=== PATIENT | female | born 1955 | race Caucasian/White ===

== ENCOUNTER 2018-04-13 01:45 | Emergency (ER) | payer OTHER ==
[2018-04-13] MEDS ORDERED: morphine SULFATE 4 MG/ML VIAL IVPUSH ONE (01:48)
[2018-04-13] MEDS ORDERED: ONDANSETRON 4 MG/2 ML VIAL IVPUSH ONE (01:48)
[2018-04-13] MEDS ORDERED: SODIUM CHLORIDE 1,000 ML IV STA (01:48)
--- NOTE | 2018-04-13 01:54 | PDOC ---
History of Present Illness - General Chief Complaint: Pain Stated Complaint: ABDOMINAL PAIN Time Seen by Provider: 04/13/18 01:48 History Source: Patient Exam Limitations: No Limitations - History of Present Illness Initial Comments: 04/13/18 02:26 Romeo Rand 63 YOF with no known medical history presenting with acute onset of diffuse mid-AP, n/v today. a/w dizziness and nearly passing out. Sx started 6pm tonight. Denies suspicious food intake or sick contacts. No diarrhea or urinary sx, no f/c, cp or sob. PMH: none PSH: none Social: no tobacco or ETOH/drug use. ROS Constitutional: no fevers or chills. HEENT: no headache or dizziness. No congestion. No visual/hearing disturbances. CVS: no cp or syncope. Resp: no sob. No cough. Gastrointestinal: +abdominal pain, nausea or vomiting. Genitourinary: no urinary sx, hematuria. MUSCULOSKELETAL: No joint pain and swelling. No neck or back pain. SKIN: no redness or skin changes, no discharge, no rash. No wounds. Hematologic: no easy bruising/bleeding. NEUROLOGIC: No headache, dizziness, LOC or altered mental status. No weakness, numbness or tingling. Allergic/Immunologic: no allergies All other systems reviewed and negative, or as documented in HPI. PE: General: in moderate distress, moaning and crying HEENT: NCAT, PERRL, EOMI, clear conjunctiva, anicteric, dry mucus membranes, clear oropharynx, no oral lesions.. Neck: neck supple, FROM Resp: CTAB, hyperventilating CVS: RRR, no murmurs, 2+ peripheral pulses throughout, no peripheral edema Abdomen: soft, mid-periumbilical TTP, no rebound or guarding. No CVAT Back: nontender, normal inspection and ROM MSK: no edema, CADE x4, ROM intact. No clubbing or cyanosis. normal bulk and tone. Extremities: no calf tenderness Neuro: alert Skin: warm and well perfused, cap refill <2 sec, normal color Past History - Past Medical History Allergies/Adverse Reactions: Allergies Allergy/AdvReac Type Severity Reaction Status Date / Time No Known Allergies Allergy Unverified 04/13/18 02:08 Home Medications: Ambulatory Orders Famotidine [Pepcid -] 20 mg PO BID #14 tablet 04/13/18 Mag Hydrox/Al Hydrox/Simeth [Mylanta Suspension -] 30 ml PO Q6H PRN #1 bottle Ondansetron [Zofran Odt -] 4 mg SL TID PRN #9 od.tablet 04/13/18 Heart Score/ECG Review - ECG Intrepretation Rhythm: Regular Rhythm - [place]: Normal - ST and T Early Repolarization: No - ECG Impressions Normal ECG: Yes Non-specific ST Elevation: No ED Treatment Course - LABORATORY CBC & Chemistry Diagram: 04/13/18 02:13 04/13/18 02:13 - RADIOLOGY Radiology Studies Ordered: Category Date Time Status ABDOMEN & PELVIS CT WITH CONTR [CT] Stat CT Scan 04/13/18 01:53 Ordered Medical Decision Making - Medical Decision Making 04/13/18 02:27 DDx abdominal pain: Renal colic, biliary colic, metabolic/electrolyte derangements. GERD, PUD, esophageal spasm, pancreatitis, hepatitis, constipation , colitis, gastroenteritis, cholecystitis, UTI, pyelonephritis, ileus, SBO, medication side effect, hernia, appendicitis, diverticulitis, mesenteric ischemia. ACS hpi as documented VS with hypertension, hyperventilating. normal pulse/afebrile labs and lytes wnl, mild likely reactive leukocytosis. normal lytes and Cr. CT a/p to r/o perf/obstruction/infection/inflammation with severity of presentation. no acute findings, no perf/obstruction, no obstructing stones. umbilical hernia UA_neg for infection EKG sinus rhythm, no e/o ischemia. trop neg, less likely ACS abdominal exam does not suggest peritonitis or mesenteric ischemia. ED course: multiple rounds of medications including IVF, zofran, tylenol, toradol and morphine. +rash likely from histamine mediation from morphine, so gave benadryl with improvement. no anaphylaxis. pepcid/GI cocktail trial and bentyl as well. more effect with the GI cocktail. on reeval, occasionally moaning, pointing to epigastrium. soft and no rebound or guarding now has been sleeping comfortably, will treat supportively and outpatient GI followup. more likely gastritis vs spasms vs dyspepsia. dispo: Pt informed of my clinical impression, treatment recommendations and disposition plan. All questions answered to patient's satisfaction and expressed understanding and comfort with this. Reasons for returning to the ED sooner discussed with the patient otherwise, follow up with primary care physician. At the time of discharge, the patient is alert, clinically improved, tolerating po and verbalizes understanding of instructions. Patient does not suffer from an acute life-threatening medical condition at this time she is safe for outpatient follow-up. 04/13/18 06:08 04/13/18 06:08 *DC/Admit/Observation/Transfer Diagnosis at time of Disposition: Abdominal pain Qualifiers: Abdominal location: generalized Qualified Code(s): R10.84 - Generalized abdominal pain - Discharge Dispostion Disposition: HOME Condition at time of disposition: Good Decision to Admit order: No - Prescriptions Prescriptions: Famotidine [Pepcid -] 20 mg PO BID #14 tablet Mag Hydrox/Al Hydrox/Simeth [Mylanta Suspension -] 30 ml PO Q6H PRN #1 bottle PRN Reason: Gas Ondansetron [Zofran Odt -] 4 mg SL TID PRN #9 od.tablet PRN Reason: Nausea And/Or Vomiting - Referrals Referrals: [facility] [place] [Provider Group] [facility] [Provider Group] Henrique Salazar MD [Staff Physician] - Rhys Barnes MD [Staff Physician] - Florencio Downing MD [Staff Physician] - - Patient Instructions Printed Discharge Instructions: DI for Abdominal Pain-Adult, GERD Diet Additional Instructions: Your laboratory / imaging results were normal, your CT scan did not reveal abnormalities, only umbilical hernia Follow up with your physician and consultants as instructed, take your medications as instructed including zofran every 8 hours as needed for nausea. pepcid twice a day and maalox four times a day with meals. this combination will help with your stomach pains. stay hydrated rest and avoid potential triggers such as spicy or fatty foods referrals to gastroenterologists provided for management and workup of your abdominal pain Return if worsening symptoms including fevers, headache, vomiting, visual or hearing disturbances, abdominal pain, chest pain, shortness of breath, syncope, dehydration, inability to take things by mouth/vomiting, altered mental status, or worsening concerning symptoms. your medications on discharge include_ side effects may include upset stomach, abdominal pain, vomiting, or diarrhea. do not drink alcohol with your medications. - Post Discharge Activity Forms/Work/School Notes: Back to Work
[2018-04-13 01:57] VITALS: BMI 27.4
[2018-04-13] MEDS ORDERED: morphine SULFATE 4 MG/ML VIAL ONE (02:10)
[2018-04-13] MEDS ORDERED: ONDANSETRON 4 MG/2 ML VIAL ONE (02:10)
[2018-04-13] MEDS ORDERED: FAMOTIDINE 20 MG/50 ML IVPB 20 MG/50 ML MG IVPB ONE ×2 (02:39→02:45)
[2018-04-13 02:46] LABS: BASO % 0.3 % (0-2.0); EOS % 0.2 % (0-4.5); HEMATOCRIT 37.8 % (32.4-45.2); HEMOGLOBIN 13.4 GM/dL (10.7-15.3); LYMPH % 16.2 % (8-40); MCHC 35.6 g/dl (32.0-36.0); MEAN CELL VOLUME 87.1 fl (80-96); MEAN PLT VOLUME 8.3 fl (7.5-11.1); MONO % 3.8 % (3.8-10.2); NEUT % 79.5 % (42.8-82.8); PLATELET COUNT 336 K/MM3 (134-434); RBC 4.34 M/mm3 (3.60-5.2); RDW 12.8 % (11.6-15.6); WHITE BLOOD COUNT 11.1 K/mm3 (4.0-10.0)
[2018-04-13] MEDS ORDERED: morphine CARPU-JECT 4 MG/1 ML DISP.SYRIN IVPUSH ONE (03:00)
[2018-04-13] MEDS ORDERED: ACETAMINOPHEN 1000 MG/100 ML VIAL (NON FORMULARY) IVPB ONE (03:04)
[2018-04-13] MEDS ORDERED: ACETAMINOPHEN INJECTION 100 ML IVPB ONE (03:08)
[2018-04-13 03:09] LABS: ALBUMIN 4.1 g/dl (3.4-5.0); ALK PHOS 84 U/L (45-117); ANION GAP 12 MMOL/L (8-16); BILIRUBIN,TOTAL 1.2 mg/dL (0.2-1); BLOOD UREA NITROGEN 17 mg/dL (7-18); CALCIUM 9.4 mg/dL (8.5-10.1); CHLORIDE 101 mmol/L (98-107); CO2 23 mmol/L (21-32); CREATININE 0.9 mg/dL (0.55-1.3); GLUCOSE,RANDOM 173 mg/dL (74-106); LIPASE 133 U/L (73-393); POTASSIUM 3.9 mmol/L (3.5-5.1); SGOT/AST 19 U/L (15-37); SGPT/ALT 35 U/L (13-61); SODIUM 136 mmol/L (136-145); TOT PROT 7.6 g/dl (6.4-8.2)
[2018-04-13] MEDS ORDERED: KETOROLAC TROMETHAMINE 15 MG/ML VIAL IVPUSH ONE (04:15)
[2018-04-13] MEDS ORDERED: KETOROLAC TROMETHAMINE 30 MG/1 ML VIAL ONE (04:16)
[2018-04-13] MEDS ORDERED: MAG HYDROX/AL HYDROX/SIMETH 30 ML UNIT-DOSE CUP PO ONE (04:20)
[2018-04-13] MEDS ORDERED: DICYCLOMINE HCL 20 MG TABLET PO ONE (04:21)
[2018-04-13] MEDS ORDERED: MAG HYDROX/AL HYDROX/SIMETH 30 ML UNIT-DOSE CUP ONE (04:23)
[2018-04-13] MEDS ORDERED: DICYCLOMINE HCL 10 MG CAPSULE ONE ×2 (04:23→04:24)
[2018-04-13 05:52] LABS: URINE APPEARANCE CLEAR; URINE BILIRUBIN NEGATIVE (<2.0 mg/dL); URINE COLOR LTYELLOW; URINE GLUCOSE (UA) NEGATIVE (NEGATIVE); URINE KETONE 2+ (NEGATIVE); URINE LEUK ESTERASE NEGATIVE (NEGATIVE); URINE NITRITE NEGATIVE (NEGATIVE); URINE PROTEIN NEGATIVE (NEGATIVE); URINE UROBILINOGEN NEGATIVE mg/dL (0.2-1.0)
[2018-04-13 06:12] VITALS: BP 160/92; PULSE 60; TEMP 98.6
--- NOTE | 2018-04-13 16:17 | EKG ---
Test Reason : Blood Pressure : / mmHG Vent. Rate : 059 BPM Atrial Rate : 059 BPM P-R Int : 184 ms QRS Dur : 084 ms QT Int : 490 ms P-R-T Axes : 023 044 033 degrees QTc Int : 485 ms SINUS BRADYCARDIA OTHERWISE NORMAL ECG NO PREVIOUS ECGS AVAILABLE Confirmed by SHIREEN SCHNEIDER MD ([id number]) on 04/13/2018 4:16:54 PM Referred By: DR CLARK Confirmed By:SHIREEN SCHNEIDER MD
== END 2018-04-13 06:20 | disposition home or self-care (01) ==
LOC: FER 01:45
PROC: 3E033NZ Introduction of Analgesics, Hypnotics, Sedatives into Peripheral Vein, Percutaneous Approach (ICD-10-PCS; principal; 2018-04-13)
PROC: 3E033GC Introduction of Other Therapeutic Substance into Peripheral Vein, Percutaneous Approach (ICD-10-PCS; 2018-04-13)
PROC: 3E0333Z Introduction of Anti-inflammatory into Peripheral Vein, Percutaneous Approach (ICD-10-PCS; 2018-04-13)
DX: R10.84 Generalized abdominal pain (principal)
CPT/HCPCS: 36415; 74177-TC; 80053; 81003; 83690; 84484; 85025; 87086; 93005; 99283-25; J0131; J7030

== ENCOUNTER 2018-07-10 07:34 | Emergency (ER) | payer OTHER ==
[2018-07-10 07:38] VITALS: TEMP 98; BMI 26.8
[2018-07-10] MEDS ORDERED: KETOROLAC TROMETHAMINE 30 MG/1 ML VIAL IVPUSH ONE (07:48)
[2018-07-10] MEDS ORDERED: KETOROLAC TROMETHAMINE 30 MG/1 ML VIAL ONE (07:50)
[2018-07-10] MEDS ORDERED: morphine CARPU-JECT 2 MG/1 ML DISP.SYRIN IVPUSH ONE (07:53)
[2018-07-10] MEDS ORDERED: SODIUM CHLORIDE 1,000 ML IV ONE (07:53)
[2018-07-10] MEDS ORDERED: morphine SULFATE 4 MG/ML VIAL ONE ×2 (07:54→08:11)
--- NOTE | 2018-07-10 07:59 | PDOC ---
History of Present Illness - General Chief Complaint: Pain, Acute Stated Complaint: LEFT FLANK PAIN Time Seen by Provider: 07/10/18 07:45 History Source: Patient Exam Limitations: No Limitations - History of Present Illness Travel History: No Initial Comments: 07/10/18 07:54 63y F no known pmhx presents with complaint of gradual onset left flank pain since around 2am this morning. Pain has been getting worse and seems to wax and wane in nature, also seems to radiate from the L flank to the L groin. Associated with nausea without vomting, fever/chills, dysuria, hematuria, diarrhea, melena, bpr. Pt denies any diaphoresis, sob, cp. No prior history of similar pain in the past - had come here in Apr but nature of pain was different. pt also had a CT during that visit that showed L nephrolihtaisis. pt denies any drinking, smoking, drug use PMD: Dr. Sheppard Past History - Past Medical History Allergies/Adverse Reactions: Allergies Allergy/AdvReac Type Severity Reaction Status Date / Time No Known Allergies Allergy Verified 07/10/18 07:35 Home Medications: Ambulatory Orders Ibuprofen [Motrin -] 400 mg PO QID PRN #28 tablet 07/10/18 Oxycodone HCl/Acetaminophen [Percocet 5-325 mg Tablet -] 1 combo PO Q6H PRN #10 tablet MDD 4 07/10/18 Tamsulosin HCl [Flomax] 0.4 mg PO DAILY #7 capsule 07/10/18 COPD: No - Suicide/Smoking/Psychosocial Hx Smoking History: Never smoked Hx Alcohol Use: No Drug/Substance Use Hx: No Review of Systems - Review of Systems Able to Perform ROS?: Yes Comments:: 07/10/18 07:56 CONSTITUTIONAL: No reported: Fever, Chills, Diaphoresis, Generalized Weakness, Malaise, Loss of Appetite HEENT: No reported: Rhinorrhea, Nasal Congestion, Throat Pain, Throat Swelling, Difficulty Swallowing, Mouth Swelling, Ear Pain, Eye Pain, Visual Changes CARDIOVASCULAR: No reported: Chest Pain, Syncope, Palpitations, Irregular Heart Rate, Lightheadedness, Peripheral Edema RESPIRATORY: No reported: Cough, Shortness of Breath, SOB with Exertion, Orthopnea, Wheezing , Stridor, Hemoptysis GASTROINTESTINAL: +Abdominal/flank pain, nausea No reported: Abdominal Distension, Vomiting, Diarrhea, Constipation, Melena, Hematochezia GENITOURINARY: No reported: Dysuria, Frequency, Urgency, Hesitancy, Flank Pain, Genital Pain MUSCULOSKELETAL: No reported: Myalgia, Arthralgia, Joint Swelling, Back pain, Neck Pain SKIN: No reported: Rash, Itching, Pallor HEMEATOLOGIC/IMMUNOLOGIC: No reported: Easy Bleeding, Easy Bruising, Lymphadenopathy, Frequent infections ENDOCRINE: No reported: Unexplained Weight Gain, Unexplained Weight Loss, Heat Intolerance , Cold Intolerance NEUROLOGIC: No reported: Headache, Focal Weakness, Paresthesias, Vertigo, Lightheadedness, Unsteady Gait, Seizure, Mental Status Changes, Incontinence PSYCHIATRIC: No reported: Anxiety, Depression *Physical Exam - Vital Signs Last Vital Signs Temp Pulse Resp BP Pulse Ox 98 F 76 17 178/104 H 99 07/10/18 07:35 07/10/18 07:35 07/10/18 07:35 07/10/18 07:35 07/10/18 07:35 - Physical Exam Comments: 07/10/18 07:58 GENERAL: The patient is awake, alert, and fully oriented, appears to be in distress due to pain, writhing aruond HEAD: Normocephalic, atraumatic. EYES: extraocular movements intact, sclera anicteric, conjunctiva clear. ENT: Normal voice, Moist mucous membranes. NECK: Normal range of motion, supple LUNGS: Breath sounds equal, clear to auscultation bilaterally. No wheezes, no rhonchi, no rales. HEART: Regular rate and rhythm, without murmur, rub or gallop. ABDOMEN: Soft, nontender, No guarding, no rebound.No CVA tenderness EXTREMITIES: Normal range of motion, no edema. No cyanosis. No erythema, or tenderness. NEUROLOGICAL: No facial assymetry, Normal speech, PSYCH: Normal mood, normal affect. SKIN: Warm, Dry, normal turgor, No rashes on flank ED Treatment Course - LABORATORY CBC & Chemistry Diagram: 07/10/18 07:48 07/10/18 07:48 - ADDITIONAL ORDERS Additional order review: Laboratory Results 07/10/18 07:46 Urine Color Niya Urine Appearance Clear Urine pH 6.5 Urine Protein Negative Urine Glucose (UA) Negative Urine Ketones Negative Urine Blood 2+ H Urine Nitrite Negative Urine Bilirubin Negative Urine Urobilinogen 0.2 Ur Leukocyte Esterase Trace - Medications Given in the ED: ED Medications Discontinued Medications Generic Name Dose Route Start Last Admin Trade Name Tye PRN Reason Stop Dose Admin Ketorolac Tromethamine 30 mg 07/10/18 07:48 07/10/18 07:52 Toradol Injection - IVPUSH 07/10/18 07:49 30 mg ONCE ONE Administration Medical Decision Making - Medical Decision Making 07/10/18 07:59 ddx - possible kidney stones vs msk vitals wnl will ck basic labs, ua will give toradol, morphine, fluids will reassess 07/10/18 09:30 ct c/w kidney stone in the UVJ measuring 3mm pt feeling improved will dc with urology fu returnp recautions were discussed *DC/Admit/Observation/Transfer Diagnosis at time of Disposition: Kidney stone on left side - Discharge Dispostion Disposition: HOME Condition at time of disposition: Stable - Prescriptions Prescriptions: Ibuprofen [Motrin -] 400 mg PO QID PRN #28 tablet PRN Reason: Pain Oxycodone HCl/Acetaminophen [Percocet 5-325 mg Tablet -] 1 combo PO Q6H PRN #10 tablet MDD 4 PRN Reason: Pain Tamsulosin HCl [Flomax] 0.4 mg PO DAILY #7 capsule - Referrals Referrals: Leonel Sanchez MD [Staff Physician] - - Patient Instructions Printed Discharge Instructions: DI for Kidney Stones Additional Instructions: Return to the emergency department immediately with ANY new, persistent or worsening symptoms including worsening pain, inability to tolerate oral intake, fever/chills, or any other concerns. Take the ibuprofen every 6 hours for the next 2 days. Take percocet if you have pain that is not treated with the motrin/ibuprofen. Beware that it may make you sleepy, so do not drive or do anything that would put you or others in danger. Take flomax daily. Stay well hydrated. You MUST call and follow up with your doctor and urology within 3 days for further evaluation of your symptoms. Your emergency department visit is not complete without a followup with your doctor for reevaluation. Results were discussed with you. Please make sure your doctor reviews the results of your emergency evaluation. Print Language: ALGERIAN - Post Discharge Activity Forms/Work/School Notes: Back to Work
[2018-07-10 08:05] LABS: EOS % 0.2 % (0-4.5); HEMATOCRIT 39.2 % (32.4-45.2); LYMPH % 12.5 % (8-40); MCH 29.8 pg (25.7-33.7); MCHC 33.3 g/dl (32.0-36.0); MEAN CELL VOLUME 89.7 fl (80-96); MONO % 2.6 % (3.8-10.2); NEUT % 84.7 % (42.8-82.8); PLATELET COUNT 342 K/MM3 (134-434); RBC 4.37 M/mm3 (3.60-5.2); RDW 12.2 % (11.6-15.6); WHITE BLOOD COUNT 10.5 K/mm3 (4.0-10.8)
[2018-07-10] MEDS ORDERED: morphine CARPU-JECT 4 MG/1 ML DISP.SYRIN IVPUSH ONE (08:11)
[2018-07-10 08:13] LABS: ALBUMIN 4.4 g/dl (3.4-5.0); ALK PHOS 79 U/L (45-117); ANION GAP 9 MMOL/L (8-16); BILIRUBIN,TOTAL 1.5 mg/dl (0.2-1); BLOOD UREA NITROGEN 15 mg/dl (7-18); CALCIUM 9.4 mg/dl (8.5-10); CHLORIDE 105 mmol/L (98-107); CO2 24 mmol/L (21-32); GLUCOSE,RANDOM 171 mg/dl (74-106); POTASSIUM 3.7 mmol/L (3.5-5.1); SGOT/AST 37 U/L (15-37); SGPT/ALT 53 U/L (13-61); SODIUM 138 mmol/L (136-145); TOT PROT 7.3 g/dl (6.4-8.2)
[2018-07-10 09:54] VITALS: BP 144/75; PULSE 70
[2018-07-10 11:46] LABS: EPITHELIAL CELLS FEW /hpf
== END 2018-07-10 10:13 | disposition home or self-care (01) ==
LOC: FER 07:34
PROC: 3E0333Z Introduction of Anti-inflammatory into Peripheral Vein, Percutaneous Approach (ICD-10-PCS; principal; 2018-07-10)
PROC: 3E033NZ Introduction of Analgesics, Hypnotics, Sedatives into Peripheral Vein, Percutaneous Approach (ICD-10-PCS; 2018-07-10)
PROC: 3E0337Z Introduction of Electrolytic and Water Balance Substance into Peripheral Vein, Percutaneous Approach (ICD-10-PCS; 2018-07-10)
DX: N20.0 Calculus of kidney (principal)
CPT/HCPCS: 36415; 74176-TC; 80053; 81003; 81015; 85025; 99282-25; J7030

== ENCOUNTER 2018-07-24 08:11 | Day surgery (SDC) | payer OTHER ==
[2018-07-21 14:20] VITALS: BMI 26.1
[2018-07-24 10:17] VITALS: TEMP 98
[2018-07-24 11:09] VITALS: BP 146/80; PULSE 64
--- NOTE | 2018-07-26 17:53 | PATH ---
Surgical Pathology Report Patient Name: MATTHEW WAKEFIELD [facility]. Rec. #: [id number] /Age/Gender: 1955 (Age: 63) / F Account: [id number] Location: U-ENDOSCOPY Taken: 07/24/2018 Received: 07/24/2018 Reported: 07/26/2018 Physicians: Florencio Downing M.D. Specimen(s) Received A: 2ND PORTION DUODENUM AND DUODENAL BULB B: ANTRUM C: GE JUNCTION D: RIGHT COLON Clinical History Abdominal pain, colon cancer screening Postoperative diagnosis: Hiatal hernia, GERD, atrophic gastritis, right colon polyp, diverticulosis Final Diagnosis A. DUODENUM, SECOND PORTION AND DUODENAL BULB, BIOPSY: DUODENAL MUCOSA WITHOUT SIGNIFICANT PATHOLOGIC FINDINGS. B. STOMACH, ANTRUM, BIOPSY: GASTRIC ANTRAL MUCOSA WITH SEVERE CHRONIC ACTIVE GASTRITIS. IMMUNOHISTOCHEMICAL STAIN FOR H. PYLORI IS POSITIVE (FEW). C. GE JUNCTION, BIOPSY: SQUAMOUS MUCOSA WITH VASCULAR CONGESTION AND CHANGES OF MILD REFLUX TYPE ESOPHAGITIS. NO COLUMNAR MUCOSA, INTESTINAL METAPLASIA, OR DYSPLASIA IDENTIFIED. D. COLON, RIGHT, POLYP, BIOPSY: TUBULAR ADENOMA. POLYPOID COLONIC MUCOSA WITH PROMINENT LYMPHOID AGGREGATE. Electronically Signed Neena Walters M.D. Gross Description A. Received in formalin, labeled "biopsy second portion of duodenum and duodenal bulb" are 3 catalan, irregular portions of soft tissue ranging from 0.4-0.5 cm. in greatest dimension. The specimens are submitted in toto in one cassette. B. Received in formalin, labeled "biopsy antrum" are 4 catalan, irregular portions of soft tissue ranging from 0.3-0.5 cm. in greatest dimension. The specimens are submitted in toto in one cassette. C. Received in formalin, labeled "biopsy GE junction" are 2 catalan, irregular portions of soft tissue averaging 0.3 cm. in greatest dimension. The specimens are submitted in toto in one cassette. D. Received in formalin, labeled "biopsy right colon polyp" are 4 catalan, irregular portions of soft tissue ranging from 0.1-0.3 cm. in greatest dimension. The specimens are submitted in toto in one cassette. DL/07/24/2018 saudi/07/24/2018
== END 2018-07-24 11:10 | disposition home or self-care (01) ==
LOC: JASU-ENDO 08:11
PROVIDERS: ATTEND Internal Medicine Gastroenterology
PROC: 0DBB8ZX Excision of Ileum, Via Natural or Artificial Opening Endoscopic, Diagnostic (ICD-10-PCS; 2018-07-24)
PROC: 0DB68ZX Excision of Stomach, Via Natural or Artificial Opening Endoscopic, Diagnostic (ICD-10-PCS; 2018-07-24)
PROC: 0DBK8ZX Excision of Ascending Colon, Via Natural or Artificial Opening Endoscopic, Diagnostic (ICD-10-PCS; principal; 2018-07-24 09:00)
DX: Z12.11 Encounter for screening for malignant neoplasm of colon (principal); D12.2 Benign neoplasm of ascending colon; K64.8 Other hemorrhoids; K21.0 Gastro-esophageal reflux disease with esophagitis; K44.9 Diaphragmatic hernia without obstruction or gangrene; K29.40 Chronic atrophic gastritis without bleeding
CPT/HCPCS: 88305-TC; 88342-TC

== ENCOUNTER 2019-10-07 01:15 | Inpatient (IN) | payer OTHER ==
[2019-10-07] MEDS ORDERED: SODIUM CHLORIDE 1,000 ML IV STA ×3 (01:34→06:18)
[2019-10-07] MEDS ORDERED: ONDANSETRON 4 MG/2 ML VIAL IVPUSH ONE ×2 (01:34→07:56)
--- NOTE | 2019-10-07 01:34 | PDOC ---
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 She states she has moderate to severe epigastric pain, improves when she bends forward. No prior similar symptoms. No known sick contacts, no fever, no diarrhea. Past History - Medical History Allergies/Adverse Reactions: Allergies Allergy/AdvReac Type Severity Reaction Status Date / Time No Known Allergies Allergy Verified 10/07/19 01:31 Home Medications: Ambulatory Orders Omeprazole Magnesium [Prilosec] 20 mg PO DAILY 07/21/18 Mag Carb/Aluminum Hydrox/Algin [Gaviscon Liquid] 15 - 30 ml PO Q6H PRN #355 oz 07/24/18 Pantoprazole Sodium [Protonix] 40 mg PO DAILY #30 tablet. 07/24/18 COPD: No CHF: Yes HTN: Yes - Psycho-Social/Smoking History Smoking History: Never smoked Review of Systems - Review of Systems Able to Perform ROS?: Yes Comments:: GENERAL/CONSTITUTIONAL: No fever or chills. No weakness. HEAD, EYES, EARS, NOSE AND THROAT: No change in vision. No ear pain or discharge. No sore throat. CARDIOVASCULAR: No chest pain or shortness of breath. RESPIRATORY: No cough, wheezing, or hemoptysis. GASTROINTESTINAL: +Nausea, vomiting. No diarrhea or constipation. GENITOURINARY: No dysuria, frequency, or change in urination. MUSCULOSKELETAL: No joint or muscle swelling or pain. No neck or back pain. SKIN: No rash. NEUROLOGIC: No headache, vertigo, loss of consciousness, or change in strength/sensation. ENDOCRINE: No increased thirst. No abnormal weight change. HEMATOLOGIC/LYMPHATIC: No anemia, easy bleeding, or history of blood clots. ALLERGIC/IMMUNOLOGIC: No hives or skin allergy. *Physical Exam - Physical Exam GENERAL: Awake, alert, and fully oriented. Appears anxious and uncomfortable. HEAD: No signs of trauma EYES: PERRLA, EOMI, sclera anicteric, conjunctiva clear ENT: Auricles normal inspection, hearing grossly normal, nares patent, oropharynx clear without exudates. Moist mucosa NECK: Normal ROM, supple, no lymphadenopathy, JVD, or masses LUNGS: Breath sounds equal, clear to auscultation bilaterally. No wheezes, and no crackles HEART: Regular rate and rhythm, normal S1 and S2, no murmurs, rubs or gallops ABDOMEN: Soft, +epigastric tenderness, normoactive bowel sounds. No guarding, no rebound. No masses EXTREMITIES: Normal range of motion, no edema. No clubbing or cyanosis. No cords, erythema, or tenderness NEUROLOGICAL: Cranial nerves II through XII grossly intact. Normal speech, normal gait. Motor and sensation intact SKIN: Warm, dry, normal turgor, no rashes or lesions noted. Heart Score/ECG Review - ECG Impressions Comment:: EKG read 01:52- NSR 64 bpm, no acute ST/T changes ED Treatment Course - LABORATORY CBC & Chemistry Diagram: 10/07/19 01:30 10/07/19 01:30 Medical Decision Making - Medical Decision Making 10/07/19 01:37 Epigastric pain, N/V- will check labs. DDx includes gastroenteritis, ACS, pancreatitis. Will reexamine after medication to determine need for advanced imaging. At this point there are no signs of acute abdomen. 10/07/19 02:23 Pain now localizes to RUQ/epigastric area. Awaiting labs to guide imaging choice- pancreatitis vs acute jordi. 10/07/19 03:24 Pain continues. Pt with elevated lactate. Will change CT order to CTA to r/o dissection. 10/07/19 05:20 CT results d/w patient. She still has pain, unclear etiology based on workup so far. She had a prior evaluation for pain in similar location by Dr. Downing, unclear etiology. Will require admission based on pain med requirement. Microblog sent to hospitalist, awaiting callback. 10/07/19 06:02 Pt accepted for admission by Dr. Triana. Discharge - Discharge Information Problems reviewed: Yes Clinical Impression/Diagnosis: Abdominal pain Qualifiers: Abdominal location: epigastric Qualified Code(s): R10.13 - Epigastric pain Condition: Stable - Admission Yes - Follow up/Referral - Patient Discharge Instructions - Post Discharge Activity
[2019-10-07] MEDS ORDERED: FAMOTIDINE 20 MG/50 ML IVPB 20 MG/50 ML MG IVPB ONE ×3 (01:35→13:49)
[2019-10-07] MEDS ORDERED: morphine CARPU-JECT 2 MG/1 ML DISP.SYRIN IVPUSH ONE (01:35)
[2019-10-07] MEDS ORDERED: morphine SULFATE 4 MG/ML VIAL ONE ×2 (01:36→02:50)
[2019-10-07] MEDS ORDERED: ONDANSETRON 4 MG/2 ML VIAL ONE ×2 (01:36→07:56)
[2019-10-07] MEDS ORDERED: ACETAMINOPHEN 1000 MG/100 ML VIAL (NON FORMULARY) IVPB ONE (02:16)
[2019-10-07] MEDS: morphine CARPU-JECT 2 MG/1 ML DISP.SYRIN IVPUSH ONE ×2 (02:16→03:05)
[2019-10-07] MEDS ORDERED: ACETAMINOPHEN INJECTION 100 ML IVPB ONE (02:18)
[2019-10-07 02:43] LABS: BASO % 0.4 % (0-2.0); EOS % 0.1 % (0-4.5); HEMOGLOBIN 13.3 GM/dL (10.7-15.3); LYMPH % 14.5 % (8-40); MCH 29.9 pg (25.7-33.7); MCHC 33.2 g/dl (32.0-36.0); MEAN CELL VOLUME 89.8 fl (80-96); MEAN PLT VOLUME 8.6 fl (7.5-11.1); MONO % 2.4 % (3.8-10.2); NEUT % 82.6 % (42.8-82.8); PLATELET COUNT 350 K/MM3 (134-434); RBC 4.46 M/mm3 (3.60-5.2); RDW 12.9 % (11.6-15.6); WHITE BLOOD COUNT 12.3 K/mm3 (4.0-10.0)
[2019-10-07] MEDS ORDERED: morphine CARPU-JECT 4 MG/1 ML DISP.SYRIN IVPUSH ONE (02:50)
[2019-10-07 03:05] LABS: ALBUMIN 4.5 g/dl (3.4-5.0); ALK PHOS 88 U/L (45-117); BILIRUBIN,TOTAL 0.8 mg/dL (0.2-1); BLOOD UREA NITROGEN 22.1 mg/dL (7-18); CALCIUM 9.8 mg/dL (8.5-10.1); CO2 24 mmol/L (21-32); CREATININE 0.9 mg/dL (0.55-1.3); GLUCOSE,RANDOM 160 mg/dL (74-106); LIPASE 217 U/L (73-393); POTASSIUM 3.9 mmol/L (3.5-5.1); SGOT/AST 19 U/L (15-37); SGPT/ALT 25 U/L (13-61); SODIUM 140 mmol/L (136-145); TOT PROT 8.1 g/dl (6.4-8.2)
[2019-10-07 03:11] LABS: ANION GAP 12 MMOL/L (8-16); CHLORIDE 104 mmol/L (98-107)
[2019-10-07] MEDS ORDERED: HYDROmorphone HCL CARPU-JECT 1 MG/1 ML DISP.SYRIN IVPUSH ONE (03:25)
[2019-10-07] MEDS ORDERED: HYDROmorphone HCL CARPU-JECT 1 MG/1 ML DISP.SYRIN ONE (03:26)
[2019-10-07] MEDS ORDERED: PANTOPRAZOLE SODIUM 40 MG VIAL IVPUSH ONE (06:52)
[2019-10-07] MEDS ORDERED: SODIUM CHLORIDE 1,000 ML IV SCH ×3 (07:18→14:49)
[2019-10-07] MEDS: ENOXAPARIN NA (PORCINE) 40 MG/0.4 ML DISP.SYRIN SQ SCH (11:00)
[2019-10-07 12:20] VITALS: BMI 27.0
[2019-10-07] MEDS ORDERED: ONDANSETRON 4 MG/2 ML VIAL IVPUSH PRN (12:55)
--- NOTE | 2019-10-07 12:55 | HP ---
CHIEF COMPLAINT: Abdominal pain, nausea and vomiting . PCP:Seirra Cox Dr. HISTORY OF PRESENT ILLNESS: This is a 64 year old female with hx of gastritis, who presents to ER complaining of epigastric pain, nausea and vomiting. Pt reports that she was in usual state of health. Abdominal pain started around 6PM, mainly epigastric area, sharp pain radiates to RUQ and back associated with nausea,vomiting, no hemoptysis. Pt states had lunch(fish,vegetables and pickles), and some fruits for snacks (watermelon and kiwi). Denies fever, chills, cp, sob, palpitations, diarrhea, rectal bleeding, constipation,melena or urinary symptoms. Pt states had negative EGD/ colonoscopy last year by Dr. Downing. Pt reports that, she stopped taking Prilosec about a month ago. No known sick contacts ER course was notable for: (1) Lactic acid 3.2 (2) WBC 12.3,NA 140, K 3.9, LFT, Lipase - wnl, Tro 0.02 (3) CT chest/abdomen/ pelvis: No PE, pneumonia, pleural effusion,dissection,, no bowel obstruction, but noted to have GB stone without cholecystitis, no ducal dilatation. (4)- EKG: SR, no acute ST changes, qtc 451 Recent Travel:No PAST MEDICAL HISTORY: Kidney stone PAST SURGICAL HISTORY: Fibroid removal >17 yrs Social History: Smoking: No Alcohol:No Drugs: No Allergies No Known Allergies Allergy (Verified 10/07/19 01:31) HOME MEDICATIONS: Home Medications Medication Instructions Recorded Omeprazole Magnesium [Prilosec] 20 mg PO DAILY 07/21/18 REVIEW OF SYSTEMS CONSTITUTIONAL: Absent: fever, chills, diaphoresis, generalized weakness, malaise, loss of appetite, weight change HEENT: Absent: rhinorrhea, nasal congestion, throat pain, throat swelling, difficulty swallowing, mouth swelling, ear pain, eye pain, visual changes CARDIOVASCULAR: Absent: chest pain, syncope, palpitations, irregular heart rate, lightheadedness, peripheral edema RESPIRATORY: Absent: cough, shortness of breath, dyspnea with exertion, orthopnea, wheezing, stridor, hemoptysis GASTROINTESTINAL: Abdominal pain(epigastric),nausea, vomiting, no abdominal distension, diarrhea, constipation, melena, hematochezia GENITOURINARY: Absent: dysuria, frequency, urgency, hesitancy, hematuria, flank pain, genital pain MUSCULOSKELETAL: Absent: myalgia, arthralgia, joint swelling, back pain, neck pain SKIN: Absent: rash, itching, pallor HEMATOLOGIC/IMMUNOLOGIC: Absent: easy bleeding, easy bruising, lymphadenopathy, frequent infections ENDOCRINE: Absent: unexplained weight gain, unexplained weight loss, heat intolerance, cold intolerance NEUROLOGIC: Absent: headache, focal weakness or paresthesias, dizziness, unsteady gait, seizure, mental status changes, bladder or bowel incontinence PSYCHIATRIC: Absent: anxiety, depression, suicidal or homicidal ideation, hallucinations. PHYSICAL EXAMINATION Vital Signs - 24 hr 10/07/19 10/07/19 10/07/19 01:30 04:36 05:30 Temperature 97.6 F 98.1 F Pulse Rate 74 Pulse Rate [ 58 L Left Radial] Respiratory 20 20 Rate Blood Pressure 180/85 H Blood Pressure 174/85 H [Left Arm] O2 Sat by Pulse 99 98 100 Oximetry (%) 10/07/19 10/07/19 07:52 08:41 Temperature 98.6 F 98.8 F Pulse Rate 61 Pulse Rate [ 60 Left Radial] Respiratory 18 18 Rate Blood Pressure 178/77 H Blood Pressure 189/92 H [Left Arm] O2 Sat by Pulse 96 95 Oximetry (%) GENERAL: Awake, alert, and fully oriented, in no acute distress. HEAD: Normal with no signs of trauma. EYES: Pupils equal, round and reactive to light, extraocular movements intact, sclera anicteric, conjunctiva clear. No lid lag. EARS, NOSE, THROAT: Ears normal, nares patent, oropharynx clear without exudates. Moist mucous membranes. NECK: Normal range of motion, supple without lymphadenopathy, JVD, or masses. LUNGS: Breath sounds equal, clear to auscultation bilaterally. No wheezes, and no crackles. No accessory muscle use. HEART: Regular rate and rhythm, normal S1 and S2 without murmur, rub or gallop. ABDOMEN: Soft, positive epigastric and RUQ pain, tenderness,not distended, normoactive bowel sounds, no guarding, no rebound, no masses. No hepatomegaly or splenomegaly. MUSCULOSKELETAL: Normal range of motion at all joints. No bony deformities or tenderness. No CVA tenderness. UPPER EXTREMITIES: 2+ pulses, warm, well-perfused. No cyanosis. No clubbing. No peripheral edema. LOWER EXTREMITIES: 2+ pulses, warm, well-perfused. No calf tenderness. No peripheral edema. NEUROLOGICAL: Cranial nerves II-XII intact. Normal speech. Normal gait. PSYCHIATRIC: Cooperative. Good eye contact. Appropriate mood and affect. SKIN: Warm, dry, normal turgor, no rashes or lesions noted, normal capillary refill. Laboratory Results - last 24 hr 10/07/19 10/07/19 10/07/19 01:30 01:30 01:30 WBC 12.3 H RBC 4.46 Hgb 13.3 Hct 40.0 MCV 89.8 MCH 29.9 MCHC 33.2 RDW 12.9 Plt Count 350 MPV 8.6 Absolute Neuts (auto) 10.1 H Neutrophils % 82.6 Lymphocytes % 14.5 Monocytes % 2.4 L Eosinophils % 0.1 Basophils % 0.4 Nucleated RBC % 0 Sodium 140 Potassium 3.9 Chloride 104 Carbon Dioxide 24 Anion Gap 12 BUN 22.1 H Creatinine 0.9 Est GFR (CKD-EPI)AfAm 79.42 Est GFR (CKD-EPI)NonAf 68.53 POC Glucometer Random Glucose 160 H Lactic Acid 3.2 H* Calcium 9.8 Total Bilirubin 0.8 AST 19 ALT 25 Alkaline Phosphatase 88 Troponin I < 0.02 Total Protein 8.1 Albumin 4.5 Lipase 217 10/07/19 10/07/19 06:30 11:28 WBC RBC Hgb Hct MCV MCH MCHC RDW Plt Count MPV Absolute Neuts (auto) Neutrophils % Lymphocytes % Monocytes % Eosinophils % Basophils % Nucleated RBC % Sodium Potassium Chloride Carbon Dioxide Anion Gap BUN Creatinine Est GFR (CKD-EPI)AfAm Est GFR (CKD-EPI)NonAf POC Glucometer 117 Random Glucose Lactic Acid 1.8 Calcium Total Bilirubin AST ALT Alkaline Phosphatase Troponin I Total Protein Albumin Lipase ASSESSMENT/PLAN: 64 year old female with hx of gastritis, who presents to ER complaining of epigastric pain, nausea and vomiting. * Sepsis likely due to cholecystitis -lactic acid 3.2> 1.8 - wbc 12>18 - afebrile - BC ordered - ID Dr. Murillo consulted - started on Zosyn - IVF *Abdominal pain,poss due to biliary colic, GB stone vs gastritis -CT abdomen: GB stone, no evidenc of cholecystitis -GI Dr. Downing consulted - spoke with Dr. Lamb, rec NPO and abx, will eval pt - Zofran PRN -pain control - will cont on PPI * Elevated BP, no reported hx of HTN - will monitor BP closely - Hydralazine PRN * Hyperglycemia - FS AC& HS - will check Hgb ALc * Covid test pending * VTE :Lovenox * F/E/N: NPO, IVF, replace electrolytes as needed. Family Medical History Family History: Unremarkable ( except father with prostate cancer.) Visit type - Emergency Visit Emergency Visit: Yes ED Registration Date: 10/07/19 Care time: The patient presented to the Emergency Department on the above date and was hospitalized for further evaluation of their emergent condition. - New Patient This patient is new to me today: Yes Date on this admission: 10/07/19 - Critical Care Critical Care patient: No
[2019-10-07] MEDS ORDERED: hydrALAZINE HCL 20 MG/ML VIAL IVPUSH PRN (13:46)
[2019-10-07] MEDS ORDERED: PIPERACILLIN/TAZOB 2.25 GM 2.25 GM in DEXTROSE 5%-WATER - 50 ML IVPB SCH ×2 (14:00→15:00)
[2019-10-07] MEDS ORDERED: morphine CARPU-JECT 2 MG/1 ML DISP.SYRIN IVPUSH PRN (14:03)
[2019-10-07 14:25] LABS: CALCIUM 8.7 mg/dl (8.5-10); CREATININE 0.6 mg/dl (0.55-1.3); POTASSIUM 3.8 mmol/L (3.5-5.1)
[2019-10-07 14:28] LABS: BASO % 0.7 % (0-2.0); HEMATOCRIT 37.3 % (32.4-45.2); HEMOGLOBIN 12.9 GM/dl (10.7-15.3); LYMPH % 7.3 % (8-40); MCH 30.1 pg (25.7-33.7); MCHC 34.5 g/dl (32.0-36.0); MEAN CELL VOLUME 87.4 fl (80-96); MEAN PLT VOLUME 8.1 fl (7.5-11.1); MONO % 4.1 % (3.8-10.2); NEUT % 87.9 % (42.8-82.8); PLATELET COUNT 346 K/MM3 (134-434); RBC 4.27 M/mm3 (3.60-5.2); RDW 12.3 % (11.6-15.6); WHITE BLOOD COUNT 18.7 K/mm3 (4.0-10.8)
--- NOTE | 2019-10-07 14:32 | EKG ---
Test Reason : Blood Pressure : / mmHG Vent. Rate : 064 BPM Atrial Rate : 064 BPM P-R Int : 198 ms QRS Dur : 080 ms QT Int : 452 ms P-R-T Axes : 079 022 030 degrees QTc Int : 466 ms NORMAL SINUS RHYTHM NONSPECIFIC ST ABNORMALITY ABNORMAL ECG WHEN COMPARED WITH ECG OF 13-APR-2018 02:22, NO SIGNIFICANT CHANGE WAS FOUND Confirmed by MD LAZARO MOYSES ([id number]) on 10/07/2019 2:32:00 PM Referred By: MD ORTIZ Confirmed By:GONZALO LAZARO MD
--- NOTE | 2019-10-07 14:47 | CON.ID ---
Consult - Alcohol/Substance Use Hx Alcohol Use: Yes - Smoking History Smoking history: Never smoked Home Medications - Allergies Allergies/Adverse Reactions: Allergies Allergy/AdvReac Type Severity Reaction Status Date / Time No Known Allergies Allergy Verified 10/07/19 01:31 - Home Medications Home Medications: Ambulatory Orders Omeprazole Magnesium [Prilosec] 20 mg PO DAILY 07/21/18 Mag Carb/Aluminum Hydrox/Algin [Gaviscon Liquid] 15 - 30 ml PO Q6H PRN #355 oz 07/24/18 Pantoprazole Sodium [Protonix] 40 mg PO DAILY #30 tablet. 07/24/18 Physical Exam Vital Signs: Vital Signs Temperature 99.1 F 10/07/19 14:10 Pulse Rate 58 L 10/07/19 14:10 Respiratory Rate 18 10/07/19 14:10 Blood Pressure 162/70 10/07/19 14:10 O2 Sat by Pulse Oximetry (%) 95 10/07/19 08:41 Labs: CBC, BMP 10/07/19 13:50 10/07/19 13:50
--- NOTE | 2019-10-07 15:17 | PN ---
Progress Note (short form) - Note Progress Note: GI NOte: I contacted the nurse on the unit to inform her that I no longer have malpractice coverage at [facility] since that I gave up my priviliges years ago. I asked that they consult Dr. Allison or Dr. Cleveland tomorrow.
[2019-10-07] MEDS ORDERED: DEXTROSE 5%-WATER 100 ML IVPB ONE ×2 (15:32→19:29)
[2019-10-07] MEDS ORDERED: PIPERACILLIN/TAZOBACTAM 4.5 GM VIAL IVPB ONE ×2 (15:33→19:29)
[2019-10-07] MEDS: PIPERACILLIN/TAZOB 4.5 GM 4.5 GM in DEXTROSE 5%-WATER 100 ML IVPB SCH ×2 (15:47→19:35)
[2019-10-07] MEDS ORDERED: SODIUM CHLORIDE 500 ML IV STA (18:21)
[2019-10-07] MEDS ORDERED: ACETAMINOPHEN 1000 MG/100 ML VIAL (NON FORMULARY) IVPB PRN (18:52)
[2019-10-07 20:44] LABS: EPITHELIAL CELLS FEW /hpf
--- NOTE | 2019-10-07 22:23 | PN ---
Physical Exam: SUBJECTIVE: Patient seen and examined. Pt. states that her pain is now 4-5/ 10. Pt. states that around 2 hours ago she had an episode of vomiting with a tiny amount of blood. Pt. states this has never happened before. Pt. 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 Pt.states that the most comfortable position for her is on her hack with her knees flexed to her chest. She states that too much movement and eating makes her pain worse. Pt. denies any shortness of breath, current chest pain, diarrhea or constipation. Pt. denies any other episodes of bleeding. OBJECTIVE: Vital Signs Period Temp Pulse Resp BP Sys/Candelario Pulse Ox Last 24 Hr 97.6 F-101 F 58-74 18-20 142-189/65-92 95-100 GENERAL: The patient is awake, alert, and fully oriented, in mild distress 2/2 to pain. HEAD: Normal with no signs of trauma. EYES: Extraocular movements intact, sclera anicteric, conjunctiva clear. ENT: Ears normal, nares patent, oropharynx clear without exudates, moist mucous membranes. LUNGS: Breath sounds equal, clear to auscultation bilaterally, no wheezes, no crackles, no accessory muscle use. HEART: Regular rate and rhythm, S1, S2 without murmur ABDOMEN: Soft, Bowel sounds +, prominent RUQ ttp, mild epigastric tenderness, some guarding EXTREMITIES: 2+ dorsal peda pulses, warm, well-perfused, no calf tenderness, no edema. NEUROLOGICAL: Normal speech, gait not observed. PSYCH: Normal mood, normal affect. SKIN: Warm, dry, normal turgor Laboratory Results - last 24 hr 10/07/19 10/07/19 10/07/19 01:30 01:30 01:30 WBC 12.3 H RBC 4.46 Hgb 13.3 Hct 40.0 MCV 89.8 MCH 29.9 MCHC 33.2 RDW 12.9 Plt Count 350 MPV 8.6 Absolute Neuts (auto) 10.1 H Neutrophils % 82.6 Lymphocytes % 14.5 Monocytes % 2.4 L Eosinophils % 0.1 Basophils % 0.4 Nucleated RBC % 0 Sodium 140 Potassium 3.9 Chloride 104 Carbon Dioxide 24 Anion Gap 12 BUN 22.1 H Creatinine 0.9 Est GFR (CKD-EPI)AfAm 79.42 Est GFR (CKD-EPI)NonAf 68.53 POC Glucometer Random Glucose 160 H Hemoglobin A1c % Lactic Acid 3.2 H* Calcium 9.8 Total Bilirubin 0.8 AST 19 ALT 25 Alkaline Phosphatase 88 Troponin I < 0.02 Total Protein 8.1 Albumin 4.5 Lipase 217 Urine Color Urine Appearance Urine pH Urine Protein Urine Glucose (UA) Urine Ketones Urine Blood Urine Nitrite Urine Bilirubin Urine Urobilinogen Ur Leukocyte Esterase Urine RBC Urine WBC Ur Transition Epith Cell Urine Bacteria Blood Type Antibody Screen 10/07/19 10/07/19 10/07/19 06:30 11:28 13:50 WBC 18.7 H RBC 4.27 Hgb 12.9 Hct 37.3 MCV 87.4 MCH 30.1 MCHC 34.5 RDW 12.3 Plt Count 346 MPV 8.1 Absolute Neuts (auto) 16.4 Neutrophils % 87.9 H Lymphocytes % 7.3 L Monocytes % 4.1 Eosinophils % 0.0 Basophils % 0.7 Nucleated RBC % Sodium Potassium Chloride Carbon Dioxide Anion Gap BUN Creatinine Est GFR (CKD-EPI)AfAm Est GFR (CKD-EPI)NonAf POC Glucometer 117 Random Glucose Hemoglobin A1c % Lactic Acid 1.8 Calcium Total Bilirubin AST ALT Alkaline Phosphatase Troponin I Total Protein Albumin Lipase Urine Color Urine Appearance Urine pH Urine Protein Urine Glucose (UA) Urine Ketones Urine Blood Urine Nitrite Urine Bilirubin Urine Urobilinogen Ur Leukocyte Esterase Urine RBC Urine WBC Ur Transition Epith Cell Urine Bacteria Blood Type Antibody Screen 10/07/19 10/07/19 10/07/19 13:50 13:50 15:09 WBC RBC Hgb Hct MCV MCH MCHC RDW Plt Count MPV Absolute Neuts (auto) Neutrophils % Lymphocytes % Monocytes % Eosinophils % Basophils % Nucleated RBC % Sodium 136 Potassium 3.8 Chloride 100 Carbon Dioxide 24 Anion Gap 12 BUN 11.0 Creatinine 0.6 Est GFR (CKD-EPI)AfAm 113.22 Est GFR (CKD-EPI)NonAf 97.69 POC Glucometer Random Glucose 131 H Hemoglobin A1c % 6.8 H Lactic Acid 3.2 H* Calcium 8.7 Total Bilirubin AST ALT Alkaline Phosphatase Troponin I Total Protein Albumin Lipase Urine Color Urine Appearance Urine pH Urine Protein Urine Glucose (UA) Urine Ketones Urine Blood Urine Nitrite Urine Bilirubin Urine Urobilinogen Ur Leukocyte Esterase Urine RBC Urine WBC Ur Transition Epith Cell Urine Bacteria Blood Type Antibody Screen 10/07/19 10/07/19 10/07/19 15:09 18:26 18:44 WBC RBC Hgb Hct MCV MCH MCHC RDW Plt Count MPV Absolute Neuts (auto) Neutrophils % Lymphocytes % Monocytes % Eosinophils % Basophils % Nucleated RBC % Sodium Potassium Chloride Carbon Dioxide Anion Gap BUN Creatinine Est GFR (CKD-EPI)AfAm Est GFR (CKD-EPI)NonAf POC Glucometer 140 Random Glucose Hemoglobin A1c % Lactic Acid Calcium Total Bilirubin AST ALT Alkaline Phosphatase Troponin I Total Protein Albumin Lipase Urine Color Yellow Urine Appearance Clear Urine pH 7.5 Urine Protein Negative Urine Glucose (UA) Negative Urine Ketones Negative Urine Blood Trace-lysed Urine Nitrite Negative Urine Bilirubin Negative Urine Urobilinogen 0.2 Ur Leukocyte Esterase 1+ Urine RBC 2-5 Urine WBC 10-20 Ur Transition Epith Cell Few Urine Bacteria Few Blood Type A POSITIVE Antibody Screen Negative 10/07/19 21:00 WBC RBC Hgb Hct MCV MCH MCHC RDW Plt Count MPV Absolute Neuts (auto) Neutrophils % Lymphocytes % Monocytes % Eosinophils % Basophils % Nucleated RBC % Sodium Potassium Chloride Carbon Dioxide Anion Gap BUN Creatinine Est GFR (CKD-EPI)AfAm Est GFR (CKD-EPI)NonAf POC Glucometer Random Glucose Hemoglobin A1c % Lactic Acid 1.4 Calcium Total Bilirubin AST ALT Alkaline Phosphatase Troponin I Total Protein Albumin Lipase Urine Color Urine Appearance Urine pH Urine Protein Urine Glucose (UA) Urine Ketones Urine Blood Urine Nitrite Urine Bilirubin Urine Urobilinogen Ur Leukocyte Esterase Urine RBC Urine WBC Ur Transition Epith Cell Urine Bacteria Blood Type Antibody Screen Active Medications Generic Name Dose Route Start Last Admin Trade Name Freq PRN Reason Stop Dose Admin Acetaminophen 1,000 mg 10/07/19 18:52 10/07/19 19:35 Ofirmev Injection - IVPB 10/08/19 18:53 1,000 mg Q6H PRN Administration FEVER Enoxaparin Sodium 40 mg 10/07/19 10:00 10/07/19 11:00 Lovenox - SQ Not Given DAILY RAMO Hydralazine HCl 10 mg 10/07/19 13:46 10/07/19 14:16 Apresoline Injection - IVPUSH 10 mg Q6H PRN Administration HYPERTENSION Piperacillin Sod/Tazobactam 100 mls @ 200 mls/hr 10/07/19 15:00 10/07/19 19:35 Sod 4.5 gm/ Dextrose IVPB 200 mls/hr Q8H-IV RAMO Administration Protocol Sodium Chloride 1,000 mls @ 125 mls/hr 10/07/19 14:49 10/07/19 15:46 Normal Saline - IV 125 mls/hr ASDIR RAMO Administration Morphine Sulfate 2 mg 10/07/19 14:03 Morphine Injection - IVPUSH Q4H PRN PAIN LEVEL 7 - 10 Ondansetron HCl 4 mg 10/07/19 12:55 Zofran Injection IVPUSH Q4H PRN NAUSEA AND/OR VOMITING ASSESSMENT/PLAN: Pt. is a 64 year old female with PMHx. Gastritis ( s/p H. Pylori treatment) and H.x of L. Renal stone presents from [place] for RUQ and epigastric pain, nausea and vomiting. Pt. admitted for acute cholecystits #Sepsis likely due to cholecystitis -lactic acid 3.2> 1.8-->3.2 - wbc 12>18 - Febrile to 101 today - f/u BCx. - ID Dr. Murillo consulted - c/w Zosyn - IVF - Abdominal pain,poss due to biliary colic, GB stone vs. gastritis - CT abdomen: GB stone, no evidenc of cholecystitis; however subsequent Abd. Us showed pericholecystic fluid and thickened gall bladder with multiple stones. Pt. was Antonio+ during sonogram - GI Dr. Downing consult appreciated - spoke with Dr. Lamb, rec NPO and abx, will eval pt - Zofran PRN, EKG shows no sgnificant change since Apr 2018, TI in V1 and V2, QTc: 466, no ST segment elevation or depressions, Trop Neg. - Pt. states she vomited a small amount of blood (specks) once today, will trend CBC in AM - pain control - will cont on PPI #Elevated BP, no reported hx of HTN - will monitor BP closely, elevation maybe secondary to pain - Hydralazine PRN #Hyperglycemia consistent with Type 2 Diabetes - A1c 6.8%; Pt. will need Metformin on discharge as Pt. has had multiple hospital visits over the last year with elevated glucose. - BGM and ISS ACHS once tolerating PO #r/o Covid f/u results #DVT Ppx. Lovenox #F/E/N: - IVF - replace electrolytes as needed, - NPO Visit type - Emergency Visit Emergency Visit: Yes ED Registration Date: 10/08/19 Care time: The patient presented to the Emergency Department on the above date and was hospitalized for further evaluation of their emergent condition. - New Patient This patient is new to me today: Yes Date on this admission: 10/08/19 - Critical Care Critical Care patient: No - Discharge Referral Referred to [facility] Med [facility].C[facility] No ATTENDING PHYSICIAN STATEMENT I saw and evaluated the patient. I reviewed the resident's note and discussed the case with the resident. I agree with the resident's findings and plan as documented. SUBJECTIVE: OBJECTIVE: ASSESSMENT AND PLAN:
[2019-10-07] MEDS: SODIUM CHLORIDE 1,000 ML IV SCH (23:38)
[2019-10-08] MEDS ORDERED: DEXTROSE 5%-WATER 100 ML IVPB ONE ×3 (02:14→16:33)
[2019-10-08] MEDS ORDERED: PIPERACILLIN/TAZOBACTAM 4.5 GM VIAL IVPB ONE ×3 (02:14→16:33)
[2019-10-08] MEDS: PIPERACILLIN/TAZOB 4.5 GM 4.5 GM in DEXTROSE 5%-WATER 100 ML IVPB SCH ×3 (02:16→17:01)
--- NOTE | 2019-10-08 08:38 | CON.GI ---
Consult Consult Specialty:: Gastroenterology Referred by:: Etelvina Krueger NP Reason for Consultation:: Abdominal pain and vomiting - History of Present Illness Chief Complaint: Epigastric pain and vomiting History of Present Illness: 64F developed abrupt onset severe epigastric pain and bilious vomiting yesterday morning. Her sonogram reveals multiple gallstones and evidence of cholecystitis. She developed biliary colic with radiation to her scapula about 2 hours after dinner on 10/05. She spent the entire night vomiting up bilious material prompting her to come to the ER where she developed chills. She was told of gallstones on ultrasound while still in [facility] and had a similar presentation 2 years ago here which was attributed to nephrolithiasis after a CT scan. She had an EGD with ga on 07/25/19 which revealed GERD above a hiatal hernia and H. pylori gastritis which was treated. On that day she also had a colonoscopy which led to the removal of a right colon adenoma. She denies cough, SOB or diarrhea. Her pain is much improved today - History Source History Provided By: Patient Limitations to Obtaining History: No Limitations - Past Medical History Cardio/Vascular: Yes: HTN, Hyperlipdemia Gastrointestinal: Yes: Gastritis (07/24/18 EGD= H pylori gastirtis was treated and GERD above HH), GERD, Hiatal Hernia, Other (Right colon adenoma removed 07/24/18 colonoscopy) - Past Surgical History Past Surgical History: Yes: Colonoscopy, Upper Endoscopy Additional Surgical History: D&C for fibroid bleeding - Alcohol/Substance Use Hx Alcohol Use: Yes History of Substance Use: reports: None - Smoking History Smoking history: Never smoked - Social History Usual Living Arrangement: Alone ADL: Independent Occupation: domestic Place of : Other ([facility]) Came to [place] (year[place] age 42 History of Recent Travel: No Home Medications - Allergies Allergies/Adverse Reactions: Allergies Allergy/AdvReac Type Severity Reaction Status Date / Time No Known Allergies Allergy Verified 10/07/19 01:31 - Home Medications Home Medications: Ambulatory Orders Omeprazole Magnesium [Prilosec] 20 mg PO DAILY 07/21/18 Mag Carb/Aluminum Hydrox/Algin [Gaviscon Liquid] 15 - 30 ml PO Q6H PRN #355 oz 07/24/18 Pantoprazole Sodium [Protonix] 40 mg PO DAILY #30 tablet. 07/24/18 Family Medical History Family Hx Cancer: Father ( of prostate cancer) Other Family History: mother alive at 81. sister had GB removed Review of Systems - Review of Systems Constitutional: reports: Chills, Fever Eyes: reports: No Symptoms HENT: reports: No Symptoms Neck: reports: No Symptoms Cardiovascular: reports: No Symptoms Respiratory: reports: No Symptoms Gastrointestinal: reports: Abdominal Pain, Vomiting Neurological: reports: No Symptoms Endocrine: reports: No Symptoms Physical Exam-GI Vital Signs: Vital Signs Temperature 98.1 F 10/08/19 05:57 Pulse Rate 74 10/08/19 05:57 Respiratory Rate 18 10/08/19 05:57 Blood Pressure 123/61 10/08/19 05:57 O2 Sat by Pulse Oximetry (%) 100 10/07/19 19:41 CBC,CMP WBC 18.7 K/mm3 (4.0-10.8) H 10/07/19 13:50 RBC 4.27 M/mm3 (3.60-5.2) 10/07/19 13:50 Hgb 12.9 GM/dl (10.7-15.3) 10/07/19 13:50 Hct 37.3 % (32.4-45.2) 10/07/19 13:50 MCV 87.4 fl (80-96) 10/07/19 13:50 MCH 30.1 pg (25.7-33.7) 10/07/19 13:50 MCHC 34.5 g/dl (32.0-36.0) 10/07/19 13:50 RDW 12.3 % (11.6-15.6) 10/07/19 13:50 Plt Count 346 K/MM3 (134-434) 10/07/19 13:50 MPV 8.1 fl (7.5-11.1) 10/07/19 13:50 Absolute Neuts (auto) 16.4 K/mm3 10/07/19 13:50 Neutrophils % 87.9 % (42.8-82.8) H 10/07/19 13:50 Lymphocytes % 7.3 % (8-40) L 10/07/19 13:50 Monocytes % 4.1 % (3.8-10.2) 10/07/19 13:50 Eosinophils % 0.0 % (0-4.5) 10/07/19 13:50 Basophils % 0.7 % (0-2.0) 10/07/19 13:50 Nucleated RBC % 0 % (0-0) 10/07/19 01:30 Sodium 136 mmol/L (136-145) 10/07/19 13:50 Potassium 3.8 mmol/L (3.5-5.1) 10/07/19 13:50 Chloride 100 mmol/L (98-107) 10/07/19 13:50 Carbon Dioxide 24 mmol/L (21-32) 10/07/19 13:50 Anion Gap 12 MMOL/L (8-16) 10/07/19 13:50 BUN 11.0 mg/dl (7-18) 10/07/19 13:50 Creatinine 0.6 mg/dl (0.55-1.3) 10/07/19 13:50 Est GFR (CKD-EPI)AfAm 113.22 10/07/19 13:50 Est GFR (CKD-EPI)NonAf 97.69 10/07/19 13:50 POC Glucometer 117 UNITS (80-120) 10/08/19 05:46 Random Glucose 131 mg/dl (74-106) H 10/07/19 13:50 Hemoglobin A1c % 6.8 % (4.2-6.3) H 10/07/19 13:50 Lactic Acid 1.4 mmol/L (0.4-2.0) 10/07/19 21:00 Calcium 8.7 mg/dl (8.5-10) 10/07/19 13:50 Total Bilirubin 0.8 mg/dL (0.2-1) 10/07/19 01:30 AST 19 U/L (15-37) 10/07/19 01:30 ALT 25 U/L (13-61) 10/07/19 01:30 Alkaline Phosphatase 88 U/L (45-117) 10/07/19 01:30 Troponin I < 0.02 ng/ml (0.00-0.05) 10/07/19 01:30 Total Protein 8.1 g/dl (6.4-8.2) 10/07/19 01:30 Albumin 4.5 g/dl (3.4-5.0) 10/07/19 01:30 Lipase 217 U/L (73-393) 10/07/19 01:30 Current Medications Generic Name Dose Route Start Last Admin Trade Name Freq PRN Reason Stop Dose Admin Acetaminophen 1,000 mg 10/07/19 22:33 10/08/19 08:40 Ofirmev Injection - IVPB 10/08/19 22:33 1,000 mg Q6H PRN Administration FEVER Enoxaparin Sodium 40 mg 10/07/19 10:00 10/08/19 09:20 Lovenox - SQ Not Given DAILY RAMO Hydralazine HCl 10 mg 10/07/19 13:46 10/07/19 14:16 Apresoline Injection - IVPUSH 10 mg Q6H PRN Administration HYPERTENSION Piperacillin Sod/Tazobactam 100 mls @ 200 mls/hr 10/07/19 15:00 10/08/19 09:19 Sod 4.5 gm/ Dextrose IVPB 200 mls/hr Q8H-IV RAMO Administration Protocol Sodium Chloride 1,000 mls @ 125 mls/hr 10/07/19 23:00 10/08/19 08:43 Normal Saline - IV 125 mls/hr ASDIR RAMO Administration Losartan Potassium 50 mg 10/08/19 10:00 Cozaar - PO DAILY RAMO Morphine Sulfate 2 mg 10/07/19 14:03 Morphine Injection - IVPUSH Q4H PRN PAIN LEVEL 7 - 10 Ondansetron HCl 4 mg 10/07/19 12:55 Zofran Injection IVPUSH Q4H PRN NAUSEA AND/OR VOMITING Pantoprazole Sodium 40 mg 10/08/19 10:00 10/08/19 09:20 Protonix Iv IVPUSH 40 mg DAILY RAMO Administration Constitutional: Yes: Anxious Eyes: Yes: Conjunctiva Clear HENT: Yes: Normocephalic Neck: Yes: Trachea Midline Cardiovascular: Yes: Regular Rate and Rhythm Respiratory: Yes: CTA Bilaterally Gastrointestinal Inspection: Yes: WNL ...Auscultate: Yes: Hypoactive Bowel Sounds ...Palpate: Yes: Tenderness. No: Hepatomegaly (RUQ but no peritoneal signs) ...Rectal Exam: Yes: Guaiac Negative (no masses, brown g neg stool) Edema: No Peripheral Pulses WNL: Yes Neurological: Yes: Alert, Oriented ...Motor Strength: WNL Labs: CBC, BMP 10/07/19 13:50 10/07/19 13:50 Selected Entries 10/07/19 10/08/19 18:55 05:57 Temperature 101 F H 98.1 F Laboratory Tests 10/07/19 10/07/19 10/07/19 01:30 01:30 13:50 WBC 12.3 H 18.7 H Hgb 13.3 12.9 Lactic Acid Total Bilirubin 0.8 AST 19 Alkaline Phosphatase 88 10/07/19 10/07/19 15:09 21:00 WBC Hgb Lactic Acid 3.2 H* 1.4 Total Bilirubin AST Alkaline Phosphatase Imaging - Results Cat Scan: Report Reviewed ( Final Report CT ABDOMEN/PELVIS CTA W/WO CONTR Show Printer-Friendly Version Patient Name: Kristin Wakefield : 1955 ID: [id number] Study Date: 07-Oct-2019 03:32 [facility] Name: KRISTIN WAKEFIELD DEPARTMENT OF RADIOLOGY Phys: Katty Pina MD : 1955 Age: 64 Sex: F [facility] Acct: [id number] Loc: FM/S [address] [facility]. Exam Date: 10/07/19 Status: [place] [address] Unit Number: [id number] EXAM#: TYPE/EXAM: RESULT: CT/ABDOMEN/PELVIS CTA W/WO CONTR [id number] CT/CHEST CTA Chest CT angiography (with contrast) Abdomen/pelvis CT angiography (with contrast) Clinical information: evaluate for dissection The submitted exams of the chest, abdomen and pelvis were performed following the intravenous administration of nonionic contrast. Arterial phase imaging only was obtained. Enteric contrast was not administere d. The thoracoabdominal aorta demonstrates no CT evidence of dissection, aneurysm, or penetrating atherosclerotic ulceration. The periaortic soft tissue planes appear intact. No mediastinal or retroperitoneal hematoma is seen. No evidence of pneumothorax, pneumomediastinum, infiltrate or pleural effusion. Mild bibasilar and lingular discoid atelectasis. There is no definite cardiac enlargement. No pericardial effusion is seen. No CT evidence of intrathoracic lymphadenopathy. There is no evidence of pneumoperitoneum, free intraperitoneal fluid or bowel obstruction. Cholelithiasis is noted without CT evidence of acute cholecystitis. There is no definite biliary tract dilatation. The liver, spleen, pancreas, adrenal glands and kidneys demonstrate no obvious abnormality on the basis of arterial phase imaging only. No definite lymphadenopathy is noted on the basis of size criteria. No CT evidence of acute appendicitis or diverticulitis. There is no obvious acute colitis. Small umbilical hernia containing fat only. No gross pelvic soft tissue CT abnormality is noted. Mild L4-L5 degenerative spondylolisthesis. Mild lumbar levoscoliosis. Impression: No CT evidence of aortic dissection or aneurysm. Cholelithiasis. Reported By: Camilo Wheatley MD 10/07/19 121 Technologist: Tommie Gutierrez Transcribed Date/Time: 10/07/191209 Supply Requirements Officer: Camilo Wheatley Printed Date/Time: By: Signed by: Camilo Wheatley Signed on: 07-Oct-2019 12:11) Ultrasound: Report Reviewed ( Final Report US ABDOMEN US -LIMITED Show Printer-Friendly Version Patient Name: Kristin Wakefield : 1955 ID: [id number] Study Date: 07-Oct-2019 16:56 [facility] Name: KRISTIN WAKEFIELD DEPARTMENT OF RADIOLOGY Phys: Morris Lamb MD : 1955 Age: 64 Sex: F [facility] Acct: [id number] Loc: FM/S [address] [place] [address]. Exam Date: 10/07/19 Status: [place] [address] Unit Number: [id number] EXAM#: TYPE/EXAM: RESULT: [id number] US/ABDOMEN US -LIMITED HISTORY PROVIDED: Right upper quadrant pain. Real time examination of the abdomen demonstrates the following: The gallbladder is slightly thickened with a trace amount pericholecystic fluid and multiple small calculi. The shaper operator describes a positive Antonio's sign and acute cholecystitis is suspected. A follow-up HIDA scan may be warranted for confirmation. There is no evidence of intra or extrahepatic biliary duct dilatation. The liver is borderline enlarged. It is mildly hyperechoic in texture consistent with diffuse fatty infiltration. No mass lesions are identified within the liver. Hepatopedal flow is documented within the main portal vein. The pancreas is not well visualized due to overlying bowel gas. There is no evidence of hydronephrosis or acute abnormalities of the right kidney. There is no evidence of AAA. The IVC is patent. IMPRESSION: 1. Thick-walled gallbladder with pericholecystic fluid and multiple calculi. This appearance is suspicious for acute cholecystitis. Clinical correlation and follow-up recommended. 2. Borderline hepatomegaly and diffuse fatty infiltration of liver. Please see above discussion. Reported By: Willy Steel MD 10/07/191828 Technologist: Jose Luis Arceo Transcribed Date/Time: 10/07/191828 Supply Requirements Officer: Willy Steel Printed Date/Time: By: Signed by: Willy Steel Signed on: 07-Oct-2019 18:30) Problem List - Problems (1) Biliary colic Code(s): K80.50 - CALCULUS OF BILE DUCT W/O CHOLANGITIS OR CHOLECYST W/O OBST (2) Cholecystitis with cholelithiasis Code(s): K80.10 - CALCULUS OF GALLBLADDER W CHRONIC CHOLECYST W/O OBSTRUCTION (3) Hypertension Code(s): I10 - ESSENTIAL (PRIMARY) HYPERTENSION (4) History of Helicobacter pylori infection Code(s): Z86.19 - PERSONAL HISTORY OF OTHER INFECTIOUS AND PARASITIC DISEASES (5) Hiatal hernia with GERD Code(s): K21.9 - GASTRO-ESOPHAGEAL REFLUX DISEASE WITHOUT ESOPHAGITIS; K44.9 - DIAPHRAGMATIC HERNIA WITHOUT OBSTRUCTION OR GANGRENE (6) Colon adenoma Code(s): D12.6 - BENIGN NEOPLASM OF COLON, UNSPECIFIED (7) Hyperlipemia Code(s): E78.5 - HYPERLIPIDEMIA, UNSPECIFIED (8) Kidney stone on left side Code(s): N20.0 - CALCULUS OF KIDNEY Assessment/Plan Impression: - Kristin appears to have classic acute cholecystitis with biliary colic. I have advised a cholecystectomy SIMÓN before she develops choledocholithiasis with cholangitis or biliary pancreatitis. She will need a repeat set of LFTs to exclude this. If her LFTs are elevated then I will pursue an MRCP. She is agreeing to a cholecystectomy - Personal h/o colon adenoma - Personal h/o hiatal hernia with GERD - Past h/o H pylori gastritis Plan: -- Continue antibiotics -- Repeat blood work ordered -- COVID 19 status pending -- Communicated with Dr Lamb and anticipate cholecystectomy tomorrow. I will stop the heparin
[2019-10-08] MEDS: ACETAMINOPHEN 1000 MG/100 ML VIAL (NON FORMULARY) IVPB PRN ×2 (08:40→22:05)
[2019-10-08] MEDS: SODIUM CHLORIDE 1,000 ML IV SCH ×2 (08:43→17:01)
[2019-10-08] MEDS: ENOXAPARIN NA (PORCINE) 40 MG/0.4 ML DISP.SYRIN SQ SCH (09:20)
[2019-10-08] MEDS: PANTOPRAZOLE SODIUM 40 MG VIAL IVPUSH SCH (09:20)
--- NOTE | 2019-10-08 10:31 | PN ---
Progress Note, Physician History of Present Illness: patient looks much better pain better - Current Medication List Current Medications: Active Medications Acetaminophen (Ofirmev Injection -) 1,000 mg IVPB Q6H PRN PRN Reason: FEVER Stop: 10/08/19 22:33 Last Admin: 10/08/19 08:40 Dose: 1,000 mg Documented by: Hydralazine HCl (Apresoline Injection -) 10 mg IVPUSH Q6H PRN PRN Reason: HYPERTENSION Last Admin: 10/07/19 14:16 Dose: 10 mg Documented by: Piperacillin Sod/Tazobactam (Sod 4.5 gm/ Dextrose) 100 mls @ 200 mls/hr IVPB Q8H-IV RAMO; Protocol Last Admin: 10/08/19 09:19 Dose: 200 mls/hr Documented by: Sodium Chloride (Normal Saline -) 1,000 mls @ 125 mls/hr IV ASDIR RAMO Last Admin: 10/08/19 08:43 Dose: 125 mls/hr Documented by: Losartan Potassium (Cozaar -) 50 mg PO DAILY RAMO Morphine Sulfate (Morphine Injection -) 2 mg IVPUSH Q4H PRN PRN Reason: PAIN LEVEL 7 - 10 Ondansetron HCl (Zofran Injection) 4 mg IVPUSH Q4H PRN PRN Reason: NAUSEA AND/OR VOMITING Pantoprazole Sodium (Protonix Iv) 40 mg IVPUSH DAILY [facility] Last Admin: 10/08/19 09:20 Dose: 40 mg Documented by: - Objective Vital Signs: Vital Signs Temperature 98.1 F 10/08/19 05:57 Pulse Rate 74 10/08/19 05:57 Respiratory Rate 18 10/08/19 05:57 Blood Pressure 123/61 10/08/19 05:57 O2 Sat by Pulse Oximetry (%) 100 10/07/19 19:41 Constitutional: Yes: Calm, Mild Distress Neck: Yes: Supple, Trachea Midline Cardiovascular: Yes: Regular Rate and Rhythm, S1, S2 Respiratory: Yes: Regular, CTA Bilaterally Gastrointestinal: Yes: Soft, Hypoactive Bowel Sounds, Tenderness Musculoskeletal: Yes: WNL Extremities: Yes: WNL Neurological: Yes: Alert, Oriented Labs: CBC, BMP 10/07/19 13:50 10/07/19 13:50 Assessment/Plan 64 year old female with hx of gastritis, who presents to ER complaining of epigastric pain, nausea and vomiting. sepsis ac choleycystitis lactic acidosis abd pain plan continue abx surgery on board plan for surgery rest as per the team
[2019-10-08 11:25] LABS: BASO % 0.3 % (0-2.0); EOS % 0.5 % (0-4.5); HEMATOCRIT 36.5 % (32.4-45.2); LYMPH % 12.7 % (8-40); MCH 29.7 pg (25.7-33.7); MEAN CELL VOLUME 90.2 fl (80-96); MEAN PLT VOLUME 8.4 fl (7.5-11.1); MONO % 4.2 % (3.8-10.2); NEUT % 82.3 % (42.8-82.8); PLATELET COUNT 284 K/MM3 (134-434); RBC 4.05 M/mm3 (3.60-5.2)
[2019-10-08] MEDS: LOSARTAN POTASSIUM 50 MG TABLET (FP) PO SCH (11:35)
[2019-10-08 11:52] LABS: ALBUMIN 3.2 g/dl (3.4-5.0); BILIRUBIN,TOTAL 2.4 mg/dL (0.2-1); CALCIUM 8.5 mg/dL (8.5-10.1); MAGNESIUM 2.4 mg/dL (1.8-2.4); POTASSIUM 3.4 mmol/L (3.5-5.1); TOT PROT 6.2 g/dl (6.4-8.2)
[2019-10-08 11:53] LABS: CREATININE 0.8 mg/dL (0.55-1.3)
--- NOTE | 2019-10-08 12:34 | PN ---
Physical Exam: SUBJECTIVE: Patient seen and examined at the bedside. no abdominal pain, nausea or vomiting. OBJECTIVE: covid status: pending ---- Patient is a 64 year old female with a significant past medical history of gastritis, who presents to ED on 10/07/2019 complaining of epigastric pain, nausea and vomiting. An abd ultrasound 10/07/19: acute cholecystitis. Patient kept NPO, on IV antibiotics. For possible surgical intervention tomorrow. Vital Signs Period Temp Pulse Resp BP Sys/Candelario Pulse Ox Last 24 Hr 98 F-101 F 58-74 16-18 123-164/61-71 95-100 GENERAL: Awake, alert, and fully oriented, in no acute distress. HEAD: Normal with no signs of trauma. EYES: Pupils equal, round and reactive to light EARS, NOSE, THROAT: Ears normal, nares patent, oropharynx clear without exudates. NECK: Normal range of motion, supple without lymphadenopathy, JVD, or masses. LUNGS: Breath sounds equal, clear to auscultation bilaterally. HEART: Regular rate and rhythm ABDOMEN: Soft, positive epigastric and RUQ pain, mild tendernes MUSCULOSKELETAL: Normal range of motion at all joints. No bony deformities or tenderness. UPPER EXTREMITIES: No peripheral edema. LOWER EXTREMITIES: No peripheral edema. NEUROLOGICAL: Normal speech. Normal gait. PSYCHIATRIC: Appropriate mood and affect. SKIN: Warm, dry, normal turgor, no rashes or lesions noted, normal capillary refill. Laboratory Results - last 24 hr 10/07/19 10/07/19 10/07/19 13:50 13:50 13:50 WBC 18.7 H RBC 4.27 Hgb 12.9 Hct 37.3 MCV 87.4 MCH 30.1 MCHC 34.5 RDW 12.3 Plt Count 346 MPV 8.1 Absolute Neuts (auto) 16.4 Neutrophils % 87.9 H Lymphocytes % 7.3 L Monocytes % 4.1 Eosinophils % 0.0 Basophils % 0.7 Nucleated RBC % Sodium 136 Potassium 3.8 Chloride 100 Carbon Dioxide 24 Anion Gap 12 BUN 11.0 Creatinine 0.6 Est GFR (CKD-EPI)AfAm 113.22 Est GFR (CKD-EPI)NonAf 97.69 POC Glucometer Random Glucose 131 H Hemoglobin A1c % 6.8 H Lactic Acid Calcium 8.7 Phosphorus Magnesium Total Bilirubin AST ALT Alkaline Phosphatase Total Protein Albumin Total Amylase Lipase Urine Color Urine Appearance Urine pH Urine Protein Urine Glucose (UA) Urine Ketones Urine Blood Urine Nitrite Urine Bilirubin Urine Urobilinogen Ur Leukocyte Esterase Urine RBC Urine WBC Ur Transition Epith Cell Urine Bacteria Blood Type Antibody Screen 10/07/19 10/07/19 10/07/19 15:09 15:09 18:26 WBC RBC Hgb Hct MCV MCH MCHC RDW Plt Count MPV Absolute Neuts (auto) Neutrophils % Lymphocytes % Monocytes % Eosinophils % Basophils % Nucleated RBC % Sodium Potassium Chloride Carbon Dioxide Anion Gap BUN Creatinine Est GFR (CKD-EPI)AfAm Est GFR (CKD-EPI)NonAf POC Glucometer 140 Random Glucose Hemoglobin A1c % Lactic Acid 3.2 H* Calcium Phosphorus Magnesium Total Bilirubin AST ALT Alkaline Phosphatase Total Protein Albumin Total Amylase Lipase Urine Color Urine Appearance Urine pH Urine Protein Urine Glucose (UA) Urine Ketones Urine Blood Urine Nitrite Urine Bilirubin Urine Urobilinogen Ur Leukocyte Esterase Urine RBC Urine WBC Ur Transition Epith Cell Urine Bacteria Blood Type A POSITIVE Antibody Screen Negative 10/07/19 10/07/19 10/07/19 18:44 21:00 23:50 WBC RBC Hgb Hct MCV MCH MCHC RDW Plt Count MPV Absolute Neuts (auto) Neutrophils % Lymphocytes % Monocytes % Eosinophils % Basophils % Nucleated RBC % Sodium Potassium Chloride Carbon Dioxide Anion Gap BUN Creatinine Est GFR (CKD-EPI)AfAm Est GFR (CKD-EPI)NonAf POC Glucometer 134 Random Glucose Hemoglobin A1c % Lactic Acid 1.4 Calcium Phosphorus Magnesium Total Bilirubin AST ALT Alkaline Phosphatase Total Protein Albumin Total Amylase Lipase Urine Color Yellow Urine Appearance Clear Urine pH 7.5 Urine Protein Negative Urine Glucose (UA) Negative Urine Ketones Negative Urine Blood Trace-lysed Urine Nitrite Negative Urine Bilirubin Negative Urine Urobilinogen 0.2 Ur Leukocyte Esterase 1+ Urine RBC 2-5 Urine WBC 10-20 Ur Transition Epith Cell Few Urine Bacteria Few Blood Type Antibody Screen 10/08/19 10/08/19 10/08/19 05:46 09:53 09:53 WBC 12.0 H RBC 4.05 Hgb 12.0 Hct 36.5 MCV 90.2 MCH 29.7 MCHC 33.0 RDW 13.0 Plt Count 284 MPV 8.4 Absolute Neuts (auto) 9.9 H Neutrophils % 82.3 Lymphocytes % 12.7 Monocytes % 4.2 Eosinophils % 0.5 D Basophils % 0.3 Nucleated RBC % 0 Sodium 142 Potassium 3.4 L Chloride 109 H Carbon Dioxide 26 Anion Gap 8 BUN 10.0 Creatinine 0.8 Est GFR (CKD-EPI)AfAm 91.58 Est GFR (CKD-EPI)NonAf 79.01 POC Glucometer 117 Random Glucose 120 H Hemoglobin A1c % Lactic Acid Calcium 8.5 Phosphorus 2.0 L Magnesium 2.4 Total Bilirubin 2.4 H AST 39 H ALT 52 Alkaline Phosphatase 76 Total Protein 6.2 L Albumin 3.2 L Total Amylase 38 Lipase 128 Urine Color Urine Appearance Urine pH Urine Protein Urine Glucose (UA) Urine Ketones Urine Blood Urine Nitrite Urine Bilirubin Urine Urobilinogen Ur Leukocyte Esterase Urine RBC Urine WBC Ur Transition Epith Cell Urine Bacteria Blood Type Antibody Screen Active Medications Generic Name Dose Route Start Last Admin Trade Name Freq PRN Reason Stop Dose Admin Acetaminophen 1,000 mg 10/07/19 22:33 10/08/19 08:40 Ofirmev Injection - IVPB 10/08/19 22:33 1,000 mg Q6H PRN Administration FEVER Hydralazine HCl 10 mg 10/07/19 13:46 10/07/19 14:16 Apresoline Injection - IVPUSH 10 mg Q6H PRN Administration HYPERTENSION Piperacillin Sod/Tazobactam 100 mls @ 200 mls/hr 10/07/19 15:00 10/08/19 09:19 Sod 4.5 gm/ Dextrose IVPB 200 mls/hr Q8H-IV RAMO Administration Protocol Sodium Chloride 1,000 mls @ 125 mls/hr 10/07/19 23:00 10/08/19 08:43 Normal Saline - IV 125 mls/hr ASDIR RAMO Administration Losartan Potassium 50 mg 10/08/19 10:00 10/08/19 11:35 Cozaar - PO 50 mg DAILY RAMO Administration Morphine Sulfate 2 mg 10/07/19 14:03 Morphine Injection - IVPUSH Q4H PRN PAIN LEVEL 7 - 10 Ondansetron HCl 4 mg 10/07/19 12:55 Zofran Injection IVPUSH Q4H PRN NAUSEA AND/OR VOMITING Pantoprazole Sodium 40 mg 10/08/19 10:00 10/08/19 09:20 Protonix Iv IVPUSH 40 mg DAILY RAMO Administration Potassium Chloride 40 meq 10/08/19 13:00 K-Dur - PO 10/08/19 13:01 ONCE ONE ASSESSMENT/PLAN: Problem List - Problems (1) Sepsis Assessment/Plan: Sepsis secondary to acute cholecystitis. lactic acidosis resolved with IV bolus. WBC improving. remains afebrile. blood cultures pending ID following. patient on Zosyn Code(s): A41.9 - SEPSIS, UNSPECIFIED ORGANISM (2) Acute cholecystitis Assessment/Plan: surgery to evaluate for possible cholecystectomy tomorrow. Lovenox d/c Code(s): K81.0 - ACUTE CHOLECYSTITIS (3) Abdominal pain Assessment/Plan: Abdominal pain,poss due to biliary colic, GB stone GI consulted Patient to be NPO with antibiotics and to be seen by surgery for possible acute jordi covid pending pain controlled on PPI Code(s): R10.9 - UNSPECIFIED ABDOMINAL PAIN Qualifiers: Abdominal location: epigastric Qualified Code(s): R10.13 - Epigastric pain (4) Cholecystitis with cholelithiasis Code(s): K80.10 - CALCULUS OF GALLBLADDER W CHRONIC CHOLECYST W/O OBSTRUCTION (5) Hypertension Assessment/Plan: stable on cozaar Code(s): I10 - ESSENTIAL (PRIMARY) HYPERTENSION (6) DVT prophylaxis Assessment/Plan: scds Code(s): Z29.9 - ENCOUNTER FOR PROPHYLACTIC MEASURES, UNSPECIFIED (7) Prophylactic measure Assessment/Plan: fen NPO NS @ 125/cchr Monitor electrolytes npo/can have ice chips full code Code(s): Z29.9 - ENCOUNTER FOR PROPHYLACTIC MEASURES, UNSPECIFIED Visit type - Emergency Visit Emergency Visit: Yes ED Registration Date: 10/08/19 Care time: The patient presented to the Emergency Department on the above date and was hospitalized for further evaluation of their emergent condition. - New Patient This patient is new to me today: Yes Date on this admission: 10/08/19 - Critical Care Critical Care patient: No - Discharge Referral Referred to [facility] Med P.C[facility] No
[2019-10-08] MEDS ORDERED: POTASSIUM CHLORIDE TABS 20 MEQ TABLET.ER (FP) PO ONE (13:00)
[2019-10-08 13:22] LABS: INR 1.03 (0.83-1.09); PROTHROMBIN TIME (PATIENT) 12.2 SEC (9.7-13.0)
--- NOTE | 2019-10-08 20:01 | PN ---
Progress Note (short form) - Note Progress Note: GI NOte: Pain resolved. LFTs essentially normal with the exception of the total bilirubin which I believe is jaundice related to bacteremia of perhaps to be indirect. Anticipate lap choly tomorrow Problem List - Problems (1) Biliary colic Code(s): K80.50 - CALCULUS OF BILE DUCT W/O CHOLANGITIS OR CHOLECYST W/O OBST (2) Cholecystitis with cholelithiasis Code(s): K80.10 - CALCULUS OF GALLBLADDER W CHRONIC CHOLECYST W/O OBSTRUCTION (3) Hypertension Code(s): I10 - ESSENTIAL (PRIMARY) HYPERTENSION (4) History of Helicobacter pylori infection Code(s): Z86.19 - PERSONAL HISTORY OF OTHER INFECTIOUS AND PARASITIC DISEASES (5) Hiatal hernia with GERD Code(s): K21.9 - GASTRO-ESOPHAGEAL REFLUX DISEASE WITHOUT ESOPHAGITIS; K44.9 - DIAPHRAGMATIC HERNIA WITHOUT OBSTRUCTION OR GANGRENE (6) Colon adenoma Code(s): D12.6 - BENIGN NEOPLASM OF COLON, UNSPECIFIED (7) Hyperlipemia Code(s): E78.5 - HYPERLIPIDEMIA, UNSPECIFIED (8) Kidney stone on left side Code(s): N20.0 - CALCULUS OF KIDNEY
[2019-10-08] MEDS ORDERED: SODIUM CHLORIDE 1,000 ML IV SCH (22:02)
[2019-10-09] MEDS ORDERED: PIPERACILLIN/TAZOBACTAM 4.5 GM VIAL IVPB ONE ×2 (02:14→20:57)
[2019-10-09] MEDS ORDERED: DEXTROSE 5%-WATER 100 ML IVPB ONE ×2 (02:14→20:57)
[2019-10-09] MEDS: PIPERACILLIN/TAZOB 4.5 GM 4.5 GM in DEXTROSE 5%-WATER 100 ML IVPB SCH ×3 (02:40→21:42)
[2019-10-09] MEDS ORDERED: MORPHINE SULFATE 2 MG/ML VIAL IVPUSH PRN ×2 (05:32→12:15)
--- NOTE | 2019-10-09 08:08 | CONSULT ---
- Consultation REQUESTING PROVIDER: Yovani PADILLA CONSULT REQUEST: We have been asked to surgically evaluate this patient for (specify). PCP:HUA Dong HISTORY OF PRESENT ILLNESS: JASPER who is a 64 y/o female who presented to the [facility] ED w/sudden onset of epigastric pain 10/07/2019; a w/u was done w/a CTA of the chest and a/p and w/u revealed cholelithiasis and possible cholecystitis; an US confirmed this and ther was no evidence of extra/intrahepatic ductal dil atation; she ? never had this before ?; she denies dark urine/light stools. She has NOC. Pain was post prandial and associated w/ nausea and vomiting; she has had recent EGD and colonoscopy. PMHx: GERD/gastritis/HLD/HTN/nephrolithiasis PSHx: D and C Home Medications Medication Instructions Recorded Omeprazole Magnesium [Prilosec] 20 mg PO DAILY 07/21/18 Mag Carb/Aluminum Hydrox/Algin 15 - 30 ml PO Q6H PRN #355 oz 07/24/18 [Gaviscon Liquid] Pantoprazole Sodium [Protonix] 40 mg PO DAILY #30 tablet. 07/24/18 Allergies Allergy/AdvReac Type Severity Reaction Status Date / Time No Known Allergies Allergy Verified 10/07/19 01:31 REVIEW OF SYSTEMS: CONSTITUTIONAL: Absent: fever, chills, diaphoresis, generalized weakness, malaise, loss of appetite, weight change CARDIOVASCULAR: Absent: chest pain, syncope, palpitations, irregular heart rate, lightheadedness, peripheral edema RESPIRATORY: Absent: cough, shortness of breath, dyspnea with exertion, wheezing, stridor, hemoptysis GASTROINTESTINAL: Present: abdominal pain, abdominal distension, nausea, vomiting, Absent:diarrhea, constipation, melena, hematochezia GENITOURINARY: Absent: dysuria, frequency, urgency, hesitancy, hematuria, Present:flank pain, Absent: genital pain MUSCULOSKELETAL: Absent: myalgia, arthralgia, joint swelling, back pain, neck pain SKIN: Absent: rash, itching, pallor HEMATOLOGIC/IMMUNOLOGIC: Absent: easy bleeding, easy bruising, lymphadenopathy NEUROLOGIC: Absent: headache, focal weakness, paresthesias, dizziness, unsteady gait, seizure, mental status changes, bladder or bowel incontinence PSYCHIATRIC: Absent: anxiety, depression, suicidal or homicidal ideation, hallucinations. PHYSICAL EXAM: GENERAL: Awake, alert, and fully oriented, in no acute distress. HEAD: Normal with no signs of trauma. EYES: PERRL, sclera anicteric, conjunctiva clear. NECK: Normal ROM, supple without lymphadenopathy, JVD, or masses. ABDOMEN: Soft, tender RUQ, not distended, normoactive bowel sounds, minimal g uarding, no rebound, no masses. No organomegaly. No hernias MUSCULOSKELETAL: Normal ROM at all joints. No bony deformities or tenderness. No CVA tenderness. UPPER EXTREMITIES: 2+ pulses, warm, well-perfused. No cyanosis. Cap refill <2 seconds. No peripheral edema. LOWER EXTREMITIES: 2+ pulses, warm, well-perfused. No calf tenderness. No peripheral edema. NEUROLOGICAL: Normal speech, gait not observed. PSYCH: Cooperative. Good eye contact. Appropriate mood and affect. SKIN: Warm, dry, normal turgor, no rashes or lesions noted. Vital Signs Temperature 98.8 F 10/09/19 07:58 Pulse Rate 79 10/09/19 07:58 Respiratory Rate 18 10/09/19 07:58 Blood Pressure 161/79 10/09/19 07:58 O2 Sat by Pulse Oximetry (%) 97 10/09/19 07:56 Lab Results WBC 12.0 K/mm3 (4.0-10.0) H 10/08/19 09:53 RBC 4.05 M/mm3 (3.60-5.2) 10/08/19 09:53 Hgb 12.0 GM/dL (10.7-15.3) 10/08/19 09:53 Hct 36.5 % (32.4-45.2) 10/08/19 09:53 MCV 90.2 fl (80-96) 10/08/19 09:53 MCHC 33.0 g/dl (32.0-36.0) 10/08/19 09:53 RDW 13.0 % (11.6-15.6) 10/08/19 09:53 Plt Count 284 K/MM3 (134-434) 10/08/19 09:53 INR 1.03 (0.83-1.09) 10/08/19 12:10 Sodium 142 mmol/L (136-145) 10/08/19 09:53 Potassium 3.4 mmol/L (3.5-5.1) L 10/08/19 09:53 Chloride 109 mmol/L (98-107) H 10/08/19 09:53 Carbon Dioxide 26 mmol/L (21-32) 10/08/19 09:53 Anion Gap 8 MMOL/L (8-16) 10/08/19 09:53 BUN 10.0 mg/dL (7-18) 10/08/19 09:53 Creatinine 0.8 mg/dL (0.55-1.3) 10/08/19 09:53 Random Glucose 120 mg/dL (74-106) H 10/08/19 09:53 Calcium 8.5 mg/dL (8.5-10.1) 10/08/19 09:53 Blood Type A POSITIVE 10/07/19 15:09 Antibody Screen Negative 10/07/19 15:09 Imaging w/u to date reviewed IMP: acute cholecystitis/cholelithiasis PLAN: Lap jordi; possible open; possible IOC. R/b/t/a's d/w the patient who wishes to proceed w/surgery. Morris Lamb MD FACS
[2019-10-09 08:28] LABS: BASO % 0.9 % (0-2.0); EOS % 3.2 % (0-4.5); HEMATOCRIT 33.7 % (32.4-45.2); HEMOGLOBIN 11.4 GM/dL (10.7-15.3); LYMPH % 26.1 % (8-40); MCH 30.5 pg (25.7-33.7); MEAN CELL VOLUME 89.8 fl (80-96); MONO % 6.4 % (3.8-10.2); NEUT % 63.4 % (42.8-82.8); PLATELET COUNT 250 K/MM3 (134-434); RBC 3.75 M/mm3 (3.60-5.2); RDW 12.8 % (11.6-15.6); WHITE BLOOD COUNT 7.4 K/mm3 (4.0-10.0)
[2019-10-09] MEDS ORDERED: BUPIVACAINE HCL/PF 0.5% (5MG/ML) 10 ML VIAL NR ONE ×2 (08:55)
--- NOTE | 2019-10-09 08:57 | PN ---
Progress Note, Physician Chief Complaint: Seen and examined in bed. S/P lap jordi. Dressing c/d/i. Mild incisional pain. History of Present Illness: Patient is a 64 year old female with a significant past medical history of gastritis, who presents to ED on 10/07/2019 complaining of epigastric pain, nausea and vomiting. An abd ultrasound 10/07/19: acute cholecystitis. S/p lap jordi with Dr Lamb - Current Medication List Current Medications: Active Medications Hydralazine HCl (Apresoline Injection -) 10 mg IVPUSH Q6H PRN PRN Reason: HYPERTENSION Last Admin: 10/07/19 14:16 Dose: 10 mg Documented by: Piperacillin Sod/Tazobactam (Sod 4.5 gm/ Dextrose) 100 mls @ 200 mls/hr IVPB Q8H-IV [facility]; Protocol Last Admin: 10/09/19 02:40 Dose: 200 mls/hr Documented by: Sodium Chloride (Normal Saline -) 1,000 mls @ 100 mls/hr IV ASDIR [facility] Last Admin: 10/09/19 02:46 Dose: 100 mls/hr Documented by: Losartan Potassium (Cozaar -) 50 mg PO DAILY [facility] Last Admin: 10/08/19 11:35 Dose: 50 mg Documented by: Morphine Sulfate (Morphine Sulfate) 2 mg IVPUSH Q4H PRN PRN Reason: PAIN LEVEL 7 - 10 Ondansetron HCl (Zofran Injection) 4 mg IVPUSH Q4H PRN PRN Reason: NAUSEA AND/OR VOMITING Pantoprazole Sodium (Protonix Iv) 40 mg IVPUSH DAILY [facility] Last Admin: 10/08/19 09:20 Dose: 40 mg Documented by: - Objective Vital Signs: Vital Signs Temperature 98.8 F 10/09/19 07:58 Pulse Rate 79 10/09/19 07:58 Respiratory Rate 18 10/09/19 07:58 Blood Pressure 161/79 10/09/19 07:58 O2 Sat by Pulse Oximetry (%) 97 10/09/19 07:56 Constitutional: Yes: Well Nourished, No Distress, Calm Eyes: Yes: WNL, Conjunctiva Clear HENT: Yes: WNL, Atraumatic, Normocephalic Neck: Yes: WNL Cardiovascular: Yes: WNL, Regular Rate and Rhythm Respiratory: Yes: WNL, Regular, CTA Bilaterally Gastrointestinal: Yes: Soft, Hypoactive Bowel Sounds (RUQ), Other (ZENA with sersang drainage. 3 bandaids to right abd.) ...Rectal Exam: Yes: Deferred Genitourinary: Yes: WNL Breast(s): Yes: WNL Musculoskeletal: Yes: WNL Extremities: Yes: WNL Edema: No Peripheral Pulses WNL: Yes Peripheral Pulses: Left Radial: 2+, Right Radial: 2+, Left Doralis Pedis: 2+, Right Dorsalis Pedis: 2+, Left Femoral: 2+, Right Femoral: 2+ Integumentary: Yes: Incision (c/d/i) Wound/Incision: Yes: Dressing Dry and Intact, Other (ZENA) Neurological: Yes: WNL, Alert, Oriented Labs: CBC, BMP 10/09/19 07:05 INR, PTT INR 1.03 (0.83-1.09) 10/08/19 12:10 Problem List - Problems (1) COVID-19 Assessment/Plan: not detected Code(s): U07.1 - COVID POSITIVE (2) GERD (gastroesophageal reflux disease) Assessment/Plan: c/w protonix Code(s): K21.9 - GASTRO-ESOPHAGEAL REFLUX DISEASE WITHOUT ESOPHAGITIS (3) Gastritis Assessment/Plan: history of follwoing Code(s): K29.70 - GASTRITIS, UNSPECIFIED, WITHOUT BLEEDING (4) Cholecystitis with cholelithiasis Assessment/Plan: s/p lap jordi with intraop cholangiogram Code(s): K80.10 - CALCULUS OF GALLBLADDER W CHRONIC CHOLECYST W/O OBSTRUCTION (5) Hyperlipemia Assessment/Plan: low fat/chol diet when able to take po Code(s): E78.5 - HYPERLIPIDEMIA, UNSPECIFIED (6) Hypertension Assessment/Plan: normotensive c/w losartan, hydralazine prn Code(s): I10 - ESSENTIAL (PRIMARY) HYPERTENSION (7) Prophylactic measure Assessment/Plan: FEN Fluids: IVF LR 125cc/hr until tomroow Electrolytes: monitor & replete as needed Nutrition: clear diet DVT moderate risk sq heparin Dispo Maintain as inpatient full code discharge planning Code(s): Z29.9 - ENCOUNTER FOR PROPHYLACTIC MEASURES, UNSPECIFIED (8) Sepsis Assessment/Plan: Sepsis secondary to acute cholecystitis. lactic acidosis resolved with IVF WBC 7.0 remains afebrile. BCx NGTD ID following, c/w Zosyn Code(s): A41.9 - SEPSIS, UNSPECIFIED ORGANISM (9) Acute pain Assessment/Plan: post op pain MSO4 for severe [pain, roxicodone for moderate Code(s): R52 - PAIN, UNSPECIFIED Visit type - Emergency Visit Emergency Visit: Yes Care time: The patient presented to the Emergency Department on the above date and was hospitalized for further evaluation of their emergent condition. - New Patient This patient is new to me today: Yes Date on this admission: 10/09/19 - Critical Care Critical Care patient: No - Discharge Referral Referred to [facility] Med P.C.: No
[2019-10-09 09:03] LABS: BILIRUBIN,TOTAL 2.4 mg/dL (0.2-1); BLOOD UREA NITROGEN 9.6 mg/dL (7-18); CALCIUM 8.4 mg/dL (8.5-10.1); CREATININE 0.8 mg/dL (0.55-1.3); POTASSIUM 3.6 mmol/L (3.5-5.1); TOT PROT 5.9 g/dl (6.4-8.2)
[2019-10-09] MEDS ORDERED: BUPIVACAINE HCL 50 ML ONE ×2 (09:17→09:53)
[2019-10-09] MEDS: PANTOPRAZOLE SODIUM 40 MG VIAL IVPUSH SCH (09:58)
[2019-10-09] MEDS: LOSARTAN POTASSIUM 50 MG TABLET (FP) PO SCH (09:58)
[2019-10-09] MEDS ORDERED: NEOSTIGMINE METHYLSULFATE 0.5 MG/ML - 10 ML MDV ONE (10:37)
--- NOTE | 2019-10-09 10:58 | OP ---
Operative Note - Note: Operative Date: 10/09/19 Pre-Operative Diagnosis: acute cholecystitis/cholelithiasis Operation: lap jordi w/intraop cholangiogram Findings: acute cholecystitis/cholelithiasis/nl cystic duct cholangiogram Surgeon: Morris Lamb Chief Dispatcher Service: Arnel Rubi Anesthesiologist/[employer] MANAGER: Ed Haro Anesthesia: General Specimens Removed: gallbladder and contents Estimated Blood Loss (mls): 75 Drains & Tubes with Location: 10 mm ZENA
[2019-10-09] MEDS ORDERED: LACTATED RINGERS SOLUTION 1,000 ML IV SCH ×2 (11:00→12:15)
[2019-10-09] MEDS ORDERED: oxyCODONE HCL 5 MG TABLET PO PRN (11:19)
[2019-10-09] MEDS ORDERED: hydrALAZINE HCL 20 MG/ML VIAL IVPUSH PRN (12:15)
[2019-10-09] MEDS ORDERED: ONDANSETRON 4 MG/2 ML VIAL IVPUSH PRN (12:15)
[2019-10-09] MEDS ORDERED: SODIUM CHLORIDE 1,000 ML IV SCH (12:15)
--- NOTE | 2019-10-09 13:09 | PN ---
Progress Note, Physician History of Present Illness: post op no issues - Current Medication List Current Medications: Active Medications Fentanyl (Sublimaze Injection -) 50 mcg IVPUSH [id number] PRN PRN Reason: PAIN-PACU ORDER X 4 DOSES ONLY Hydralazine HCl (Apresoline Injection -) 10 mg IVPUSH Q6H PRN PRN Reason: HYPERTENSION Lactated Ringer's (Lactated Ringers Solution) 1,000 mls @ 125 mls/hr IV ASDIR [facility] Last Admin: 10/09/19 12:21 Dose: 0 mls Documented by: Sodium Chloride (Normal Saline -) 1,000 mls @ 100 mls/hr IV ASDIR [facility] Losartan Potassium (Cozaar -) 50 mg PO DAILY [facility] Morphine Sulfate (Morphine Sulfate) 2 mg IVPUSH Q4H PRN PRN Reason: PAIN LEVEL 7 - 10 Ondansetron HCl (Zofran Injection) 4 mg IVPUSH Q4H PRN PRN Reason: NAUSEA AND/OR VOMITING Oxycodone HCl (Roxicodone -) 5 mg PO Q4H PRN PRN Reason: PAIN LEVEL 1-5 Oxycodone HCl (Roxicodone -) 10 mg PO Q4H PRN PRN Reason: PAIN LEVEL 6-10 Pantoprazole Sodium (Protonix Iv) 40 mg IVPUSH DAILY [facility] - Objective Vital Signs: Vital Signs Temperature 97.6 F 10/09/19 10:50 Pulse Rate 67 10/09/19 12:00 Respiratory Rate 18 10/09/19 12:00 Blood Pressure 104/50 L 10/09/19 12:00 O2 Sat by Pulse Oximetry (%) 97 10/09/19 12:00 Constitutional: Yes: Calm, Mild Distress Cardiovascular: Yes: S1, S2 Respiratory: Yes: Regular, CTA Bilaterally Gastrointestinal: Yes: Soft, Hypoactive Bowel Sounds, Tenderness Musculoskeletal: Yes: WNL Extremities: Yes: WNL Neurological: Yes: Alert, Oriented Psychiatric: Yes: Alert, Oriented Labs: CBC, BMP 10/09/19 07:05 10/09/19 07:05 INR, PTT INR 1.03 (0.83-1.09) 10/08/19 12:10 Assessment/Plan 64 year old female with hx of gastritis, who presents to ER complaining of epigastric pain, nausea and vomiting. sepsis ac choleycystitis lactic acidosis abd pain plan continue abx await for results
[2019-10-09] MEDS ORDERED: HYDROmorphone HCl 2 MG/ML VIAL ONE (13:12)
[2019-10-09] MEDS: HYDROmorphone HCl 2 MG/ML VIAL IVPUSH ONE ×2 (13:14→13:25)
--- NOTE | 2019-10-09 13:59 | SURG ---
Surgery Cnc Lathe Machinist Note Cnc Lathe Machinist: Arnel Rubi PA-C Date of Service: 10/09/19 Diagnosis: acute cholecystitis/cholelithiasis Procedure: lap jordi w/intraop cholangiogram I was present for the entirety of the operative procedure. For further detail, please refer to operative report. Visit type - Case Type Case Type: ED Admission - Emergency Emergency Visit: Yes Care time: The patient presented to the Emergency Department on the above date and was hospitalized for further evaluation of their emergent condition. - New patient This patient is new to me today: No - Critical Care Critical Care patient: No
[2019-10-09] MEDS: LACTATED RINGERS SOLUTION 1,000 ML IV SCH (17:30)
[2019-10-09] MEDS ORDERED: ACETAMINOPHEN 325 MG TABLET (FP) PO PRN (20:04)
--- NOTE | 2019-10-09 20:35 | PN.GI ---
GI Progress Note Subjective: GI NOte: Appears flushed and has ever 101.4. Denies pruritus. Operative note unremarkable but has ZENA drain. - Objective Vital Signs: Vital Signs Temperature 98.7 F 10/09/19 19:22 Pulse Rate 90 10/09/19 19:22 Respiratory Rate 18 10/09/19 19:22 Blood Pressure 133/66 10/09/19 19:22 O2 Sat by Pulse Oximetry (%) 96 10/09/19 15:00 Laboratory Tests 10/09/19 10/09/19 10/09/19 07:05 07:05 07:05 WBC 7.4 Total Bilirubin 2.4 H Direct Bilirubin 0.5 H Alkaline Phosphatase 85 Constitutional: Other (Exhausted) Eyes: Yes: Conjunctiva Clear Cardiovascular: Yes: Tachycardia Respiratory: Yes: CTA Bilaterally Gastrointestinal Inspection: Yes: Scars (laparoscopic wounds noted and clean. ZENA has sanguinous return) ...Auscultate: Yes: No Bowel Sounds Labs: CBC, BMP 10/09/19 07:05 10/09/19 07:05 INR, PTT INR 1.03 (0.83-1.09) 10/08/19 12:10 Assessment/Plan Impression: - Postop s/p laparoscopic cholecystectomy now postop fever. The erythema involves her face , neck and upper chest and may reflect an allergic reaction - COVID negative - Personal h/o colon adenoma - Personal h/o hiatal hernia with GERD - Past h/o H pylori gastritis Plan: -- Will start Benadryl -- Continue antibiotics -- Repeat blood cultures now -- CBC and LFTs in AM -- Tylenol for fever Problem List - Problems (1) Biliary colic Code(s): K80.50 - CALCULUS OF BILE DUCT W/O CHOLANGITIS OR CHOLECYST W/O OBST (2) Cholecystitis with cholelithiasis Code(s): K80.10 - CALCULUS OF GALLBLADDER W CHRONIC CHOLECYST W/O OBSTRUCTION (3) Hypertension Code(s): I10 - ESSENTIAL (PRIMARY) HYPERTENSION (4) History of Helicobacter pylori infection Code(s): Z86.19 - PERSONAL HISTORY OF OTHER INFECTIOUS AND PARASITIC DISEASES (5) Hiatal hernia with GERD Code(s): K21.9 - GASTRO-ESOPHAGEAL REFLUX DISEASE WITHOUT ESOPHAGITIS; K44.9 - DIAPHRAGMATIC HERNIA WITHOUT OBSTRUCTION OR GANGRENE (6) Colon adenoma Code(s): D12.6 - BENIGN NEOPLASM OF COLON, UNSPECIFIED (7) Hyperlipemia Code(s): E78.5 - HYPERLIPIDEMIA, UNSPECIFIED (8) Kidney stone on left side Code(s): N20.0 - CALCULUS OF KIDNEY
[2019-10-10] MEDS ORDERED: DEXTROSE 5%-WATER 100 ML IVPB ONE ×3 (02:54→17:12)
[2019-10-10] MEDS ORDERED: PIPERACILLIN/TAZOBACTAM 4.5 GM VIAL IVPB ONE ×3 (02:54→17:12)
[2019-10-10] MEDS: PIPERACILLIN/TAZOB 4.5 GM 4.5 GM in DEXTROSE 5%-WATER 100 ML IVPB SCH ×3 (02:56→17:38)
[2019-10-10 04:42] LABS: URINE APPEARANCE CLEAR; URINE BILIRUBIN NEGATIVE (NEGATIVE); URINE COLOR YELLOW; URINE GLUCOSE (UA) NEGATIVE (NEGATIVE); URINE KETONE NEGATIVE (NEGATIVE); URINE LEUK ESTERASE NEGATIVE (NEGATIVE); URINE NITRITE NEGATIVE (NEGATIVE); URINE PROTEIN NEGATIVE (NEGATIVE)
[2019-10-10] MEDS: oxyCODONE HCL 5 MG TABLET PO PRN ×2 (07:53→20:56)
[2019-10-10 08:07] LABS: BILIRUBIN,DIRECT 0.4 mg/dL (0.0-0.2)
[2019-10-10 08:25] LABS: BASO % 0.3 % (0-2.0); EOS % 0.2 % (0-4.5); HEMATOCRIT 31.1 % (32.4-45.2); HEMOGLOBIN 10.3 GM/dL (10.7-15.3); LYMPH % 20.5 % (8-40); MCH 30.4 pg (25.7-33.7); MCHC 33.3 g/dl (32.0-36.0); MEAN CELL VOLUME 91.2 fl (80-96); PLATELET COUNT 284 K/MM3 (134-434); RBC 3.41 M/mm3 (3.60-5.2); RDW 12.7 % (11.6-15.6)
[2019-10-10] MEDS: LOSARTAN POTASSIUM 50 MG TABLET (FP) PO SCH ×2 (10:18→11:04)
[2019-10-10] MEDS: PANTOPRAZOLE SODIUM 40 MG VIAL IVPUSH SCH (10:18)
--- NOTE | 2019-10-10 10:32 | PN ---
Progress Note (short form) - Note Progress Note: Anesthesia POD #1 S/P Laproscopic Cholecystectomy under GA VSS, no N/V,her face was found flushed around 8:[address] Downing saw it and ordered beneadryl iv, patient responded well. Redness is gone now. Cannot tell which medicine gave the reaction. Pain is manageable. Anesthesiologist notified. Checked with recovery room if they had seen any redness. PACU reports no redness. Erica Stuart MD.
[2019-10-10] MEDS ORDERED: ACETAMINOPHEN 1000 MG/100 ML VIAL (NON FORMULARY) IVPB ONE (11:00)
--- NOTE | 2019-10-10 11:09 | PN.GI ---
GI Progress Note Subjective: GI NOte: Facial flush and fever have resolved. Tolerating liquids. Has mild incisional pain. Discussed the case with Dr Lamb who informed me that 3 filling defects were noted in the hepatic duct on intraoperative c holangiography. LFTs are still pending but the indirect bilirubin is normal. I suspect that these defects are air bubbles but have informed Kristin that they may prove to be stones that will require an ERCP for removal and that they not become symptomatic until a later date. I described the ERCP procedure and risks associated with it in her [place] language. She replied that she understood. - Objective Vital Signs: Vital Signs Temperature 98.2 F 10/10/19 10:17 Pulse Rate 73 10/10/19 10:17 Respiratory Rate 20 10/10/19 10:17 Blood Pressure 110/65 10/10/19 10:17 O2 Sat by Pulse Oximetry (%) 95 10/09/19 23:00 Laboratory Tests 10/07/19 10/07/19 10/09/19 07:40 13:50 07:05 WBC 18.7 H 7.4 Hgb Direct Bilirubin C-Reactive Protein Total Amylase Lipase COVID-19 ([facility]) Not detected 10/10/19 10/10/19 06:00 07:20 WBC 11.0 H Hgb 10.3 L Direct Bilirubin 0.4 H C-Reactive Protein 2.5 H Total Amylase 26 Lipase 90 COVID-19 ([facility]) Constitutional: Calm Gastrointestinal Inspection: Yes: Other (healing laparoscopic incisions and active RLQ P drain with serosanguinous drainage) ...Auscultate: Yes: Normoactive Bowel Sounds Labs: CBC, BMP 10/10/19 07:20 INR, PTT INR 1.03 (0.83-1.09) 10/08/19 12:10 Assessment/Plan Impression: - Da y 1 postop s/p laparoscopic cholecystectomy now postop fever. The erythema involves her face , neck and upper chest and may reflect an allergic reaction - 3 filling defects were noted in the hepatic duct on intraoperative cholangiography. I suspect that these defects are air bubbles but have informed Kristin that they may prove to be stones that will require an ERCP for removal and that they not become symptomatic until a later date. I described the ERCP procedure and risks associated with it in her [place] language. She replied that she understood. Given the fact that the clips are new would reserve MRCP for rising LFTs ( they are likely to be MRI friendly) - COVID 19 negative - Personal h/o colon adenoma - Personal h/o hiatal hernia with GERD - Past h/o H pylori gastritis Plan: -- Postop plan as per surgical team -- Will stop Benadryl -- Continue antibiotics -- Repeat blood cultures pending Problem List - Problems (1) Biliary colic Code(s): K80.50 - CALCULUS OF BILE DUCT W/O CHOLANGITIS OR CHOLECYST W/O OBST (2) Cholecystitis with cholelithiasis Code(s): K80.10 - CALCULUS OF GALLBLADDER W CHRONIC CHOLECYST W/O OBSTRUCTION (3) Hypertension Code(s): I10 - ESSENTIAL (PRIMARY) HYPERTENSION (4) History of Helicobacter pylori infection Code(s): Z86.19 - PERSONAL HISTORY OF OTHER INFECTIOUS AND PARASITIC DISEASES (5) Hiatal hernia with GERD Code(s): K21.9 - GASTRO-ESOPHAGEAL REFLUX DISEASE WITHOUT ESOPHAGITIS; K44.9 - DIAPHRAGMATIC HERNIA WITHOUT OBSTRUCTION OR GANGRENE (6) Colon adenoma Code(s): D12.6 - BENIGN NEOPLASM OF COLON, UNSPECIFIED (7) Hyperlipemia Code(s): E78.5 - HYPERLIPIDEMIA, UNSPECIFIED (8) Kidney stone on left side Code(s): N20.0 - CALCULUS OF KIDNEY
--- NOTE | 2019-10-10 12:26 | PN ---
Progress Note, Physician Chief Complaint: Seen and examined in bed. S/P lap jordi POD #1. Dressing c/d/i with ZENA in place. Febrile to 101.5 at 8pm last night, nor afebrile. Moderate incisional pain. History of Present Illness: Patient is a 64 year old female with a significant past medical history of gastritis, who presents to ED on 10/07/2019 complaining of epigastric pain, nausea and vomiting. An abd ultrasound 10/07/19: acute cholecystitis. S/p lap jordi with Dr Lamb - Current Medication List Current Medications: Active Medications Acetaminophen (Tylenol -) 650 mg PO Q6H PRN PRN Reason: FEVER Fentanyl (Sublimaze Injection -) 50 mcg IVPUSH [id number] PRN PRN Reason: PAIN-PACU ORDER X 4 DOSES ONLY Hydralazine HCl (Apresoline Injection -) 10 mg IVPUSH Q6H PRN PRN Reason: HYPERTENSION Lactated Ringer's (Lactated Ringers Solution) 1,000 mls @ 75 mls/hr IV ASDIR [facility] Last Admin: 10/09/19 17:30 Dose: 75 mls/hr Documented by: Piperacillin Sod/Tazobactam (Sod 4.5 gm/ Dextrose) 100 mls @ 200 mls/hr IVPB Q8H-IV [facility]; Protocol Last Admin: 10/10/19 10:18 Dose: 200 mls/hr Documented by: Losartan Potassium (Cozaar -) 50 mg PO DAILY [facility] Last Admin: 10/10/19 11:04 Dose: Not Given Documented by: Morphine Sulfate (Morphine Sulfate) 2 mg IVPUSH Q4H PRN PRN Reason: PAIN LEVEL 7 - 10 Ondansetron HCl (Zofran Injection) 4 mg IVPUSH Q4H PRN PRN Reason: NAUSEA AND/OR VOMITING Oxycodone HCl (Roxicodone -) 5 mg PO Q4H PRN PRN Reason: PAIN LEVEL 1-5 Oxycodone HCl (Roxicodone -) 10 mg PO Q4H PRN PRN Reason: PAIN LEVEL 6-10 Last Admin: 10/10/19 07:53 Dose: 10 mg Documented by: Pantoprazole Sodium (Protonix Iv) 40 mg IVPUSH DAILY [facility] Last Admin: 10/10/19 10:18 Dose: 40 mg Documented by: - Objective Vital Signs: Vital Signs Temperature 98.2 F 10/10/19 10:17 Pulse Rate 73 10/10/19 10:17 Respiratory Rate 10/10/19 10:17 Blood Pressure 110/65 10/10/19 10:17 O2 Sat by Pulse Oximetry (%) 95 10/09/19 23:00 Additional Findings/Remarks: Constitutional: Yes: Well Nourished, No Distress, Calm Eyes: Yes: WNL, Conjunctiva Clear HENT: Yes: WNL, Atraumatic, Normocephalic Neck: Yes: WNL Cardiovascular: Yes: WNL, Regular Rate and Rhythm Respiratory: Yes: WNL, Regular, CTA Bilaterally Gastrointestinal: Yes: Soft, Hypoactive Bowel Sounds (RUQ), Other (ZENA with sersang drainage. 3 bandaids to right abd.) ...Rectal Exam: Yes: Deferred Genitourinary: Yes: WNL Breast(s): Yes: WNL Musculoskeletal: Yes: WNL Extremities: Yes: WNL Edema: No Peripheral Pulses WNL: Yes Peripheral Pulses: Left Radial: 2+, Right Radial: 2+, Left Doralis Pedis: 2+, Right Dorsalis Pedis: 2+, Left Femoral: 2+, Right Femoral: 2+ Integumentary: Yes: Incision (c/d/i) Wound/Incision: Yes: Dressing Dry and Intact, Other (ZENA w/ serosang drainage) Neurological: Yes: WNL, Alert, Oriented Labs: CBC, BMP 10/10/19 07:20 10/10/19 07:20 INR, PTT INR 1.03 (0.83-1.09) 10/08/19 12:10 Problem List - Problems (1) COVID-19 Assessment/Plan: not detected Code(s): U07.1 - COVID POSITIVE (2) GERD (gastroesophageal reflux disease) Assessment/Plan: c/w protonix Code(s): K21.9 - GASTRO-ESOPHAGEAL REFLUX DISEASE WITHOUT ESOPHAGITIS (3) Gastritis Assessment/Plan: history of follwoing Code(s): K29.70 - GASTRITIS, UNSPECIFIED, WITHOUT BLEEDING (4) Cholecystitis with cholelithiasis Assessment/Plan: s/p lap jordi with intraop cholangiogram T bili 1.5 down from 2.4 Code(s): K80.10 - CALCULUS OF GALLBLADDER W CHRONIC CHOLECYST W/O OBSTRUCTION (5) Hyperlipemia Assessment/Plan: start low fat/chol diet Code(s): E78.5 - HYPERLIPIDEMIA, UNSPECIFIED (6) Hypertension Assessment/Plan: normotensive c/w losartan, hydralazine prn Code(s): I10 - ESSENTIAL (PRIMARY) HYPERTENSION (7) Prophylactic measure Assessment/Plan: FEN Fluids: no further IVF Electrolytes: monitor & replete as needed Nutrition: low fat/chol diet DVT moderate risk sq heparin Dispo Maintain as inpatient full code discharge planning Code(s): Z29.9 - ENCOUNTER FOR PROPHYLACTIC MEASURES, UNSPECIFIED (8) Sepsis Assessment/Plan: Sepsis secondary to acute cholecystitis. lactic acidosis resolved with IVF WBC 11.0 afebrile overnight to 101.5 Bcx pending ID following, c/w Zosyn Code(s): A41.9 - SEPSIS, UNSPECIFIED ORGANISM (9) Acute pain Assessment/Plan: post op pain MSO4 for severe pain, roxicodone for moderate Code(s): R52 - PAIN, UNSPECIFIED Visit type - Emergency Visit Emergency Visit: Yes ED Registration Date: 10/10/19 Care time: The patient presented to the Emergency Department on the above date and was hospitalized for further evaluation of their emergent condition. - New Patient This patient is new to me today: No - Critical Care Critical Care patient: No - Discharge Referral Referred to [facility] Med P.C.: No
[2019-10-10 12:27] LABS: ALBUMIN 2.7 g/dl (3.4-5.0); BILIRUBIN,TOTAL 1.5 mg/dL (0.2-1); BLOOD UREA NITROGEN 10.6 mg/dL (7-18); CALCIUM 8.6 mg/dL (8.5-10.1); MAGNESIUM 2.1 mg/dL (1.8-2.4); POTASSIUM 3.7 mmol/L (3.5-5.1); TOT PROT 5.3 g/dl (6.4-8.2)
--- NOTE | 2019-10-10 12:28 | PN ---
Progress Note, Physician History of Present Illness: stable pain at the operated site draining a lot spiked a low grade fever - Current Medication List Current Medications: Active Medications Acetaminophen (Tylenol -) 650 mg PO Q6H PRN PRN Reason: FEVER Fentanyl (Sublimaze Injection -) 50 mcg IVPUSH [id number] PRN PRN Reason: PAIN-PACU ORDER X 4 DOSES ONLY Hydralazine HCl (Apresoline Injection -) 10 mg IVPUSH Q6H PRN PRN Reason: HYPERTENSION Lactated Ringer's (Lactated Ringers Solution) 1,000 mls @ 75 mls/hr IV ASDIR RAMO Last Admin: 10/09/19 17:30 Dose: 75 mls/hr Documented by: Piperacillin Sod/Tazobactam (Sod 4.5 gm/ Dextrose) 100 mls @ 200 mls/hr IVPB Q8H-IV RAMO; Protocol Last Admin: 10/10/19 10:18 Dose: 200 mls/hr Documented by: Losartan Potassium (Cozaar -) 50 mg PO DAILY [facility] Last Admin: 10/10/19 11:04 Dose: Not Given Documented by: Morphine Sulfate (Morphine Sulfate) 2 mg IVPUSH Q4H PRN PRN Reason: PAIN LEVEL 7 - 10 Ondansetron HCl (Zofran Injection) 4 mg IVPUSH Q4H PRN PRN Reason: NAUSEA AND/OR VOMITING Oxycodone HCl (Roxicodone -) 5 mg PO Q4H PRN PRN Reason: PAIN LEVEL 1-5 Oxycodone HCl (Roxicodone -) 10 mg PO Q4H PRN PRN Reason: PAIN LEVEL 6-10 Last Admin: 10/10/19 07:53 Dose: 10 mg Documented by: Pantoprazole Sodium (Protonix Iv) 40 mg IVPUSH DAILY [facility] Last Admin: 10/10/19 10:18 Dose: 40 mg Documented by: - Objective Vital Signs: Vital Signs Temperature 98.2 F 10/10/19 10:17 Pulse Rate 73 10/10/19 10:17 Respiratory Rate 20 10/10/19 10:17 Blood Pressure 110/65 10/10/19 10:17 O2 Sat by Pulse Oximetry (%) 95 10/09/19 23:00 Constitutional: Yes: No Distress, Calm Cardiovascular: Yes: S1, S2 Respiratory: Yes: Regular, CTA Bilaterally Gastrointestinal: Yes: Soft, Tenderness, Other (drain in place) Musculoskeletal: Yes: WNL Extremities: Yes: WNL Wound/Incision: Yes: Clean/Dry Psychiatric: Yes: Alert, Oriented Labs: CBC, BMP 10/10/19 07:20 10/10/19 07:20 INR, PTT INR 1.03 (0.83-1.09) 10/08/19 12:10 Assessment/Plan 64 year old female with hx of gastritis, who presents to ER complaining of epigastric pain, nausea and vomiting. sepsis ac choleycystitis lactic acidosis abd pain plan continue abx await for repeat cx report monitor drainage rest as per the team
[2019-10-10 12:29] LABS: CREATININE 0.9 mg/dL (0.55-1.3)
[2019-10-10] MEDS ORDERED: ACETAMINOPHEN 325 MG TABLET (FP) PO PRN (14:00)
--- NOTE | 2019-10-10 14:27 | PN ---
Progress Note (short form) - Note Progress Note: Attending Surgeon POD#1 Feels better; had lots of post op discomfort; tolerated liquids; had flushing of her neck and face; ? allergic reaction ?. VSS AF Tmax 100.3 abdo-soft; port site dressings are c/d/i; ZENA site w/leakage./w negative. WBC11.0 bili-decreased and LFT's normal IMP: doing well post op PLAN: Remove drain later today; OOB; advance diet and plan for d/c 10/11/2019; case d/w Dr. Downing. Morris Lamb MD FACS
--- NOTE | 2019-10-10 16:14 | PATH ---
Surgical Pathology Report Patient Name: MATTHEW WAKEFIELD Med. Rec. #: [id number] /Age/Gender: 1955 (Age: 64) / F Account: [id number] Location: [facility] MED/SURG Taken: 10/09/2019 Received: 10/09/2019 Reported: 10/10/2019 Physicians: Eric Marino MD Specimen(s) Received GALLBLADDER Clinical History Abdominal pain Final Diagnosis GALLBLADDER, CHOLECYSTECTOMY: ACUTE AND CHRONIC CHOLECYSTITIS. CHOLELITHIASIS. ONE BENIGN LYMPH NODE. Electronically Signed Tonya Blanc M.D. Gross Description Received in formalin, labeled "gallbladder," is an 8.2 x 3.0 x 2.0 cm. gallbladder with a 0.2 cm. in length portion of cystic duct attached. There is a 1.1 cm greatest dimension periductal lymph node present. The outer surface is bustos purple with a large defect and varies from smooth to shaggy. The lumen contains multiple yellow choleliths ranging from 0.1-2.0 cm in greatest dimension. The mucosa is brown green with focal necrosis. The wall of the gallbladder ranges from 0.1-0.3 cm. in thickness. Medical Clerk sections are submitted in one cassette. [facility]
[2019-10-10] MEDS: LACTATED RINGERS SOLUTION 1,000 ML IV SCH (17:36)
[2019-10-11] MEDS ORDERED: PIPERACILLIN/TAZOBACTAM 4.5 GM VIAL IVPB ONE ×2 (01:06→10:21)
[2019-10-11] MEDS ORDERED: DEXTROSE 5%-WATER 100 ML IVPB ONE ×2 (01:07→10:21)
[2019-10-11] MEDS: PIPERACILLIN/TAZOB 4.5 GM 4.5 GM in DEXTROSE 5%-WATER 100 ML IVPB SCH ×2 (01:11→10:59)
[2019-10-11 06:18] VITALS: TEMP 98.3
[2019-10-11] MEDS: oxyCODONE HCL 5 MG TABLET PO PRN ×2 (07:13→13:36)
--- NOTE | 2019-10-11 07:13 | PN ---
Progress Note (short form) - Note Progress Note: GENERAL SURGERY POD #2 s/p Lap Jordi with IOC Alert. Resting comfortably without complaint. Shes been oob and ambulating without assistance. Voiding spontaneously. Tolerating PO diet. Denies n/v/f/c, CP, palpitations, SOB or NORIEGA AVSS. Afebrile. Gen: nad ABD: obese habitus. all surgical ports c/d/i. ZENA minimal output LE: all compartments soft. SCDs bilat. Problem List - Problems (1) Acute cholecystitis Assessment/Plan: POD #2 s/p Lap jordi with IOC ZENA dc'd on rounds cont oob and ambulate reg diet cleared for dc from surgery standpoint f/u w/ Dr. Lamb as outlined in DC PLAN tab On behalf of Dr. Lamb, thank you for the opportunity to participate in your patient's care. Code(s): K81.0 - ACUTE CHOLECYSTITIS (2) Abdominal pain Code(s): R10.9 - UNSPECIFIED ABDOMINAL PAIN Qualifiers: Abdominal location: epigastric Qualified Code(s): R10.13 - Epigastric pain
[2019-10-11 07:48] LABS: ALBUMIN 2.7 g/dl (3.4-5.0); BASO % 0.8 % (0-2.0); BILIRUBIN,TOTAL 1.3 mg/dL (0.2-1); BLOOD UREA NITROGEN 6.8 mg/dL (7-18); CALCIUM 8.5 mg/dL (8.5-10.1); CREATININE 0.9 mg/dL (0.55-1.3); EOS % 2.4 % (0-4.5); HEMATOCRIT 31.9 % (32.4-45.2); HEMOGLOBIN 10.9 GM/dL (10.7-15.3); LYMPH % 23.9 % (8-40); MAGNESIUM 1.9 mg/dL (1.8-2.4); MCH 30.9 pg (25.7-33.7); MEAN CELL VOLUME 90.8 fl (80-96); MEAN PLT VOLUME 8.2 fl (7.5-11.1); MONO % 5.2 % (3.8-10.2); NEUT % 67.7 % (42.8-82.8); PLATELET COUNT 276 K/MM3 (134-434); POTASSIUM 3.3 mmol/L (3.5-5.1); RBC 3.52 M/mm3 (3.60-5.2); RDW 12.7 % (11.6-15.6); TOT PROT 5.6 g/dl (6.4-8.2); WHITE BLOOD COUNT 8.4 K/mm3 (4.0-10.0)
--- NOTE | 2019-10-11 08:53 | DS ---
Physical Exam: SUBJECTIVE: Patient seen and examined OBJECTIVE: Vital Signs Period Temp Pulse Resp BP Sys/Candelario Pulse Ox Last 24 Hr 97.8 F-100.1 F 73-84 18-20 102-145/50-66 95-95 PHYSICAL EXAM GENERAL: The patient is awake, alert, and fully oriented, in no acute distress. HEAD: Normal with no signs of trauma. EYES: PERRL, extraocular movements intact, sclera anicteric, conjunctiva clear. ENT: Ears normal, nares patent, oropharynx clear without exudates, moist mucous membranes. NECK: Trachea midline, full range of motion, supple. LUNGS: Breath sounds equal, clear to auscultation bilaterally, no wheezes, no crackles, no accessory muscle use. HEART: Regular rate and rhythm, S1, S2 without murmur, rub or gallop. ABDOMEN: Soft, nontender, nondistended, normoactive bowel sounds, no guarding, no rebound, no hepatosplenomegaly, no masses. EXTREMITIES: 2+ pulses, warm, well-perfused, no edema. NEUROLOGICAL: Cranial nerves II through XII grossly intact. Normal speech, gait not observed. PSYCH: Normal mood, normal affect. SKIN: Warm, dry, normal turgor, no rashes or lesions noted. LABS Laboratory Results - last 24 hr 10/10/19 10/10/19 10/10/19 06:00 07:20 20:59 WBC RBC Hgb Hct MCV MCH MCHC RDW Plt Count MPV Absolute Neuts (auto) Neutrophils % Lymphocytes % Monocytes % Eosinophils % Basophils % Nucleated RBC % Sodium 144 Cancelled Potassium 3.7 Cancelled Chloride 110 H Cancelled Carbon Dioxide 23 Cancelled Anion Gap 10 Cancelled BUN 10.6 Cancelled Creatinine 0.9 Cancelled Est GFR (CKD-EPI)AfAm 79.42 Cancelled Est GFR (CKD-EPI)NonAf 68.53 Cancelled POC Glucometer 107 Random Glucose 102 Cancelled Calcium 8.6 Cancelled Magnesium 2.1 Cancelled Total Bilirubin 1.5 H Cancelled Direct Bilirubin 0.4 H AST 37 Cancelled ALT 64 H Cancelled Alkaline Phosphatase 93 Cancelled C-Reactive Protein 2.5 H Total Protein 5.3 L Cancelled Albumin 2.7 L Cancelled Total Amylase 26 Lipase 90 10/11/19 10/11/19 10/11/19 06:00 06:00 06:08 WBC 8.4 RBC 3.52 L Hgb 10.9 Hct 31.9 L MCV 90.8 MCH 30.9 MCHC 34.0 RDW 12.7 Plt Count 276 MPV 8.2 Absolute Neuts (auto) 5.7 Neutrophils % 67.7 Lymphocytes % 23.9 Monocytes % 5.2 Eosinophils % 2.4 D Basophils % 0.8 Nucleated RBC % 0 Sodium 143 Potassium 3.3 L Chloride 108 H Carbon Dioxide 25 Anion Gap 10 BUN 6.8 L Creatinine 0.9 Est GFR (CKD-EPI)AfAm 79.42 Est GFR (CKD-EPI)NonAf 68.53 POC Glucometer 54 Random Glucose 154 H Calcium 8.5 Magnesium 1.9 Total Bilirubin 1.3 H Direct Bilirubin AST 23 ALT 53 Alkaline Phosphatase 102 C-Reactive Protein Total Protein 5.6 L Albumin 2.7 L Total Amylase Lipase 10/11/19 06:30 WBC RBC Hgb Hct MCV MCH MCHC RDW Plt Count MPV Absolute Neuts (auto) Neutrophils % Lymphocytes % Monocytes % Eosinophils % Basophils % Nucleated RBC % Sodium Potassium Chloride Carbon Dioxide Anion Gap BUN Creatinine Est GFR (CKD-EPI)AfAm Est GFR (CKD-EPI)NonAf POC Glucometer 113 Random Glucose Calcium Magnesium Total Bilirubin Direct Bilirubin AST ALT Alkaline Phosphatase C-Reactive Protein Total Protein Albumin Total Amylase Lipase HOSPITAL COURSE: Date of Admission:10/10/19 Date of Discharge: 10/11/19 Minutes to complete discharge: 35 Discharge Summary Problems reviewed: Yes Reason For Visit: ABDOMINAL PAIN Current Active Problems Abdominal pain (Acute) Acute cholecystitis (Acute) Acute pain (Acute) Biliary colic (Acute) COVID-19 (Acute) Cholecystitis with cholelithiasis (Acute) Colon adenoma (Acute) DVT prophylaxis (Acute) GERD (gastroesophageal reflux disease) (Acute) Gastritis (Acute) Hiatal hernia with GERD (Acute) History of Helicobacter pylori infection (Acute) Hyperlipemia (Acute) Hypertension (Acute) Prophylactic measure (Acute) Prophylactic measure (Acute) Sepsis (Acute) Condition: Improved - Instructions Diet, Activity, Other Instructions: Dr. Lamb Discharge Instructions Dear MATTHEW STRICKLAND, Post Operative Instructions Physical activity Resume your normal everyday activity as tolerated no heavy lifting or exercise until seen by your surgeon. You may walk unlimited amounts of and climb stairs. You may resume driving the car when you feel safe and comfortable behind the wheel. Wound care If you have a bandage, leave it on, and keep dry for 48 - 72 hours. After that time discard the outer bandage. If there are tapes on the skin under the outer bandage, leave them in place. They will peel off in the next 7 to 10 days. Do Not peel them off. You may shower 2 days after surgery. If there are tapes present on the skin, they can get wet. Diet There are no dietary restrictions. Eat healthy, high-fiber foods. Drink 6 to 8 glasses of liquid each day. This will assist in keeping your bowels are regular. Pain management You may take Tylenol or acetaminophen or Ibuprofen (for example, Motrin, Advil etc.) Any pain prescription medication ordered should be taken as prescribed for moderate to severe pain. Call Dr. Lamb for any of the following: Severe pain not relieved by medication Fever of 101 or higher Excessive bleeding or drainage on dressing Inability to urinate Call the office at [phone] for a post operative appointment in 7 - 10 days. Disposition: HOME - Home Medications Comprehensive Discharge Medication List: Ambulatory Orders Omeprazole Magnesium [Prilosec] 20 mg PO DAILY 07/21/18 Mag Carb/Aluminum Hydrox/Algin [Gaviscon Liquid] 15 - 30 ml PO Q6H PRN #355 oz 07/24/18 Pantoprazole Sodium [Protonix] 40 mg PO DAILY #30 tablet. 07/24/18 oxyCODONE HCL [Roxicodone -] 5 mg PO Q4H PRN #20 tablet MDD 6 10/11/19 Prescription Drug Monitoring Program (I-STOP) results: I-STOP reviewed and no issues identified Problem List - Problems (1) COVID-19 Code(s): U07.1 - COVID POSITIVE (2) GERD (gastroesophageal reflux disease) Code(s): K21.9 - GASTRO-ESOPHAGEAL REFLUX DISEASE WITHOUT ESOPHAGITIS (3) Gastritis Code(s): K29.70 - GASTRITIS, UNSPECIFIED, WITHOUT BLEEDING (4) Cholecystitis with cholelithiasis Code(s): K80.10 - CALCULUS OF GALLBLADDER W CHRONIC CHOLECYST W/O OBSTRUCTION (5) Hyperlipemia Code(s): E78.5 - HYPERLIPIDEMIA, UNSPECIFIED (6) Hypertension Code(s): I10 - ESSENTIAL (PRIMARY) HYPERTENSION (7) Prophylactic measure Code(s): Z29.9 - ENCOUNTER FOR PROPHYLACTIC MEASURES, UNSPECIFIED (8) Sepsis Code(s): A41.9 - SEPSIS, UNSPECIFIED ORGANISM (9) Acute pain Code(s): R52 - PAIN, UNSPECIFIED This patient is new to me today: No Emergency Visit: Yes ED Registration Date: 10/10/19 Care time: The patient presented to the Emergency Department on the above date and was hospitalized for further evaluation of their emergent condition. Critical Care patient: No - Discharge Referral Referred to [facility] Med P.C.: No
[2019-10-11] MEDS: PANTOPRAZOLE SODIUM 40 MG VIAL IVPUSH SCH (10:59)
[2019-10-11] MEDS: LOSARTAN POTASSIUM 50 MG TABLET (FP) PO SCH (11:00)
[2019-10-11 11:13] VITALS: BP 118/67; PULSE 84
--- NOTE | 2019-10-11 12:11 | PN ---
Progress Note, Physician History of Present Illness: stable no new issues - Current Medication List Current Medications: Active Medications Acetaminophen (Tylenol -) 650 mg PO Q6H PRN PRN Reason: FEVER Last Admin: 10/10/19 20:56 Dose: 650 mg Documented by: Fentanyl (Sublimaze Injection -) 50 mcg IVPUSH [id number] PRN PRN Reason: PAIN-PACU ORDER X 4 DOSES ONLY Hydralazine HCl (Apresoline Injection -) 10 mg IVPUSH Q6H PRN PRN Reason: HYPERTENSION Lactated Ringer's (Lactated Ringers Solution) 1,000 mls @ 75 mls/hr IV ASDIR RAMO Last Admin: 10/10/19 17:36 Dose: Not Given Documented by: Piperacillin Sod/Tazobactam (Sod 4.5 gm/ Dextrose) 100 mls @ 200 mls/hr IVPB Q8H-IV RAMO; Protocol Last Admin: 10/11/19 10:59 Dose: 200 mls/hr Documented by: Losartan Potassium (Cozaar -) 50 mg PO DAILY [facility] Last Admin: 10/11/19 11:00 Dose: Not Given Documented by: Morphine Sulfate (Morphine Sulfate) 2 mg IVPUSH Q4H PRN PRN Reason: PAIN LEVEL 7 - 10 Ondansetron HCl (Zofran Injection) 4 mg IVPUSH Q4H PRN PRN Reason: NAUSEA AND/OR VOMITING Oxycodone HCl (Roxicodone -) 5 mg PO Q4H PRN PRN Reason: PAIN LEVEL 1-5 Oxycodone HCl (Roxicodone -) 10 mg PO Q4H PRN PRN Reason: PAIN LEVEL 6-10 Last Admin: 10/11/19 07:13 Dose: 10 mg Documented by: Pantoprazole Sodium (Protonix Iv) 40 mg IVPUSH DAILY [facility] Last Admin: 10/11/19 10:59 Dose: 40 mg Documented by: - Objective Vital Signs: Vital Signs Temperature 98.3 F 10/11/19 10:00 Pulse Rate 84 10/11/19 10:00 Respiratory Rate 20 10/11/19 10:00 Blood Pressure 118/67 10/11/19 10:00 O2 Sat by Pulse Oximetry (%) 95 10/11/19 06:26 Constitutional: Yes: No Distress, Calm Cardiovascular: Yes: S1, S2 Respiratory: Yes: Regular, CTA Bilaterally Gastrointestinal: Yes: Normal Bowel Sounds, Soft Musculoskeletal: Yes: WNL Extremities: Yes: WNL Neurological: Yes: Alert, Oriented Psychiatric: Yes: Alert, Oriented Labs: CBC, BMP 10/11/19 06:00 10/11/19 06:00 INR, PTT INR 1.03 (0.83-1.09) 10/08/19 12:10 Assessment/Plan 64 year old female with hx of gastritis, who presents to ER complaining of epigastric pain, nausea and vomiting. sepsis ac choleycystitis lactic acidosis abd pain plan repeat cx shows no growth plan to send patient home change to oral abx for another 4 days rest as per the team
--- NOTE | 2019-10-15 09:29 | OP ---
DATE OF OPERATION: 10/09/2019 PREOPERATIVE DIAGNOSES: Acute cholecystitis and cholelithiasis. POSTOPERATIVE DIAGNOSES: Acute cholecystitis and cholelithiasis. PROCEDURE: Laparoscopic cholecystectomy with intraoperative cholangiogram. SURGEON: Morris Lamb MD MEDICINE WORKER: Arnel Rubi PA-C ANESTHESIA: General. OPERATIVE FINDINGS: Acute cholecystitis and cholelithiasis and a grossly normal cystic duct cholangiogram. The rest of the findings were unremarkable. DESCRIPTION OF PROCEDURE: The patient was placed on the operating table in the supine position, and after the induction of general anesthesia, the patient's abdomen was prepped with ChloraPrep and draped in sterile fashion. A timeout was taken and a pneumoperitoneum established above the umbilicus using a Veress needle. Once 15 mmHg of intraabdominal pressure was obtained, the 5-mm port was placed at the umbilicus. Additional lateral 5-mm ports and a subxiphoid 12-mm port were placed and laparoscopy carried out, and the previously noted findings were observed. The gallbladder was placed on cephalad and lateral traction, and dissection was begun at the neck of the gallbladder where the peritoneum was opened medially and laterally using blunt and sharp dissection and electrocautery. Dissection continued in the triangle of Calot where the cystic duct was identified coursing from the neck of the gallbladder distally to the common bile duct. It was dissected proximally and distally for length. Similarly, the artery was identified and dissected. A critical view of safety was taken, and then, the cystic duct was partially opened using the EndoShears and a cholangiogram catheter that was placed percutaneously, was placed in the cystic duct and secured using a large hemoclip. A cholangiogram was carried out using fluoroscopy. Still images were captured as well, and findings were noted as above. The catheter was then removed, and the duct was completely divided using EndoShears after it was clipped twice proximally and distally with large hemoclips. The artery was similarly clipped and divided. Hemostasis was checked for and noted to be good, and then, the gallbladder was removed from the liver bed in a retrograde fashion using electrocautery. Prior to removal from the edge of the liver, hemostasis was again verified, and then, the gallbladder was removed from the edge of the liver, placed in an Endo Catch, and brought out through the subxiphoid port. Pneumoperitoneum was re-established. Hemostasis verified again, and then, the 5-mm lateral and subxiphoid ports were removed under laparoscopic vision without evidence of bleeding from the port sites. The umbilical port was removed and the pneumoperitoneum evacuated. All port sites were infiltrated with 0.50% Marcaine and the skin edges closed with 4-0 Biosyn in a subcuticular continuous fashion. Steri-Strips and Band-Aid dressings were placed, and the procedure terminated at this point and the patient aroused from general anesthesia and transferred to the postanesthesia care unit in stable condition, awake and alert. ESTIMATED BLOOD LOSS: 75 mL. REPLACEMENTS: Crystalloid. DRAINS: None. SPECIMEN: Gallbladder and contents to Pathology. I, Morris Lamb MD, was physically present in the operating room from the time the patient was placed on the operating table until she was transferred to the postanesthesia care unit in my accompaniment. MD KENNEYD Hallman/[id number] MTDD
== END 2019-10-11 14:52 | disposition home or self-care (01) | DRG 710 ==
LOC: FER 01:15 → FM/S 08:41 → UNDOADMOB 08:41 → INTOOBSV 08:41 → J7W 22:05 → FM/S 22:05 → UNDOADMOB 10-08 10:30 → J7W 10-08 10:30 → FM/S 10-08 10:30 → JASUSAT 10-09 11:29 → J7W 10-09 11:30 → JASUSAT 10-10 12:59 → J7W 10-10 12:59
PROVIDERS: ADMIT Internal Medicine; ATTEND Nurse Practitioner Acute Care
PROC: 0FT44ZZ Resection of Gallbladder, Percutaneous Endoscopic Approach (ICD-10-PCS; principal; 2019-10-09 13:45)
PROC: BF13YZZ Fluoroscopy of Gallbladder and Bile Ducts using Other Contrast (ICD-10-PCS; 2019-10-09 13:45)
DX: A41.9 Sepsis, unspecified organism (principal); K80.00 Calculus of gallbladder with acute cholecystitis without obstruction; E87.2 Acidosis; R50.82 Postprocedural fever; R03.0 Elevated blood-pressure reading, without diagnosis of hypertension; E11.65 Type 2 diabetes mellitus with hyperglycemia; K21.9 Gastro-esophageal reflux disease without esophagitis; K44.9 Diaphragmatic hernia without obstruction or gangrene; E78.5 Hyperlipidemia, unspecified; N20.0 Calculus of kidney; K29.60 Other gastritis without bleeding; Z11.59 Encounter for screening for other viral diseases
CPT/HCPCS: 36415; 71275-TC; 74174-TC; 76000-TC-FY; 76705-TC; 80048; 80053; 80061; 81003; 81015; 82150; 82248; 82962; 83036; 83605; 83690; 83721; 83735; 84100; 84484; 85025; 85610; 86140; 86850; 86900; 86901; 87040; 87086; 88304-TC; 93005; 94010; 94760; 99285-25; J0131; Q9967; U0003

== ENCOUNTER 2021-01-09 04:34 | Day surgery (SDC) | payer OTHER ==
[2021-01-08 09:42] VITALS: BMI 26.1
[~2021-01-09 04:34] MED LIST: BUPIVACAINE HCL/PF 0.5% (5MG/ML) 10 ML VIAL IJ ONE; LIDOCAINE HCL 1%, 10 MG/ML (20ML VIAL) INF ONE
[2021-01-09] MEDS ORDERED: LIDOCAINE HCL 1%, 10 MG/ML (20ML VIAL) ONE (08:35)
[2021-01-09] MEDS ORDERED: BUPIVACAINE HCL/PF 0.5% (5MG/ML) 10 ML VIAL ONE (08:35)
[2021-01-09] MEDS ORDERED: ROCURONIUM BROMIDE 100 MG/10 ML VIAL ONE (09:36)
[2021-01-09] MEDS ORDERED: PROPOFOL 20 ML ONE (09:36)
[2021-01-09] MEDS ORDERED: MIDAZOLAM HCL 2 MG/2 ML SINGLE DOSE VIAL ONE (09:36)
[2021-01-09] MEDS ORDERED: LIDOCAINE HCL/PF 2% SDV 5ML VIAL ONE (09:36)
[2021-01-09] MEDS ORDERED: ceFAZolin 2 GRAM PREMIX BAG IVPB ONE (09:45)
[2021-01-09] MEDS ORDERED: LIDOCAINE HCL 1%, 10 MG/ML (20ML VIAL) INF ONE ×2 (10:22)
[2021-01-09] MEDS ORDERED: BUPIVACAINE HCL/PF 0.5% (5MG/ML) 10 ML VIAL IJ ONE ×2 (10:22)
[2021-01-09] MEDS ORDERED: NEOSTIGMINE METHYLSULFATE 0.5 MG/ML - 10 ML MDV ONE (10:24)
[2021-01-09] MEDS ORDERED: oxyCODONE HCL 5 MG TABLET PO PRN ×2 (11:21)
[2021-01-09] MEDS ORDERED: ONDANSETRON 4 MG/2 ML VIAL IVPUSH PRN (11:21)
[2021-01-09] MEDS ORDERED: LACTATED RINGERS SOLUTION 1,000 ML IV SCH (11:30)
[2021-01-09 11:59] VITALS: TEMP 97.9
[2021-01-09 13:36] VITALS: BP 130/63; PULSE 63
== END 2021-01-09 12:55 | disposition home or self-care (01) ==
LOC: JASU-SURG 04:34
PROVIDERS: ATTEND Surgery
PROC: 0JB50ZZ Excision of Left Neck Subcutaneous Tissue and Fascia, Open Approach (ICD-10-PCS; principal; 2021-01-09 09:00)
DX: D17.0 Benign lipomatous neoplasm of skin and subcutaneous tissue of head, face and neck (principal)
CPT/HCPCS: 88304-TC; 94760

== ENCOUNTER 2023-05-11 04:35 | Day surgery (SDC) | payer MEDICARE, OTHER ==
[2023-05-05 14:32] VITALS: BMI 30.4
[2023-05-11 10:16] VITALS: TEMP 98.7
[2023-05-11 10:43] VITALS: RESP 20
[2023-05-11 11:21] VITALS: BP 160/75; PULSE 65
== END 2023-05-11 11:21 | disposition home or self-care (01) ==
LOC: JASU-ENDO 04:35
PROVIDERS: ATTEND Internal Medicine Gastroenterology
PROC: 0DJD8ZZ Inspection of Lower Intestinal Tract, Via Natural or Artificial Opening Endoscopic (ICD-10-PCS; principal; 2023-05-11 11:00)
DX: Z12.11 Encounter for screening for malignant neoplasm of colon (principal); K57.30 Diverticulosis of large intestine without perforation or abscess without bleeding; Z86.010 Personal history of colon polyps

== ENCOUNTER 2023-08-29 18:20 | Observation (INO) | payer OTHER ==
[2023-08-29] MEDS ORDERED: ONDANSETRON *ODT* 4 MG TABLET ONE (18:30)
[2023-08-29] MEDS: ONDANSETRON *ODT* 4 MG TABLET SL ONE (18:30)
[2023-08-29] MEDS: SODIUM CHLORIDE 0.9% 500 ML INFUS.BAG IV ONE (18:50)
[2023-08-29] MEDS: METOCLOPRAMIDE HCL INJECTION 10 MG/2 ML VIAL IVPB ONE (18:50)
[2023-08-29] MEDS: MECLIZINE HCL 25 MG TABLET (FP) PO ONE (18:50)
[2023-08-29] MEDS ORDERED: METOCLOPRAMIDE HCL INJECTION 10 MG/2 ML VIAL ONE (18:52)
[2023-08-29] MEDS ORDERED: MECLIZINE HCL 25 MG TABLET (FP) ONE (18:52)
[2023-08-29] MEDS: SODIUM CHLORIDE 1,000 ML IV SCH (19:25)
[2023-08-29 19:42] LABS: BASO % 0.3 % (0-2.0); EOS % 0.4 % (0-4.5); HEMATOCRIT 32.4 % (32.4-45.2); HEMOGLOBIN 10.9 GM/dL (10.7-15.3); MCH 30.3 pg (25.7-33.7); MCHC 33.8 g/dl (32.0-36.0); MEAN CELL VOLUME 89.7 fl (80-96); MEAN PLT VOLUME 7.6 fl (7.5-11.1); MONO % 3.3 % (3.8-10.2); PLATELET COUNT 285 10^3/uL (134-434); RBC 3.61 M/mm3 (3.60-5.2); RDW 12.9 % (11.6-15.6); WHITE BLOOD COUNT 13.2 K/mm3 (4.0-10.0)
[2023-08-29 19:43] LABS: INR 0.95 (0.83-1.09); PROTHROMBIN TIME (PATIENT) 10.7 SEC (9.7-13.0)
[2023-08-29 19:46] LABS: ACTIVATED PTT 30.1 SECONDS (25.2-36.5)
[2023-08-29 19:56] LABS: CHLORIDE 111 mmol/L (98-107); POTASSIUM 3.1 mmol/L (3.5-5.1); SODIUM 139 mmol/L (136-145)
[2023-08-29 19:57] LABS: CALCIUM 8.7 mg/dL (8.5-10.1)
[2023-08-29 19:58] LABS: ALBUMIN 3.4 g/dl (3.4-5.0); ANION GAP 10 mmol/L (4-13); CO2 18 mmol/L (21-32)
[2023-08-29 19:59] LABS: BLOOD UREA NITROGEN 19.3 mg/dL (7-18); GLUCOSE,RANDOM 224 mg/dL (74-106)
[2023-08-29 20:01] LABS: SGPT/ALT 62 U/L (13-61)
[2023-08-29 20:02] LABS: SGOT/AST 26 U/L (15-37)
[2023-08-29 20:03] LABS: CHOLESTEROL 229 mg/dL (50-200); TOT PROT 6.1 g/dl (6.4-8.2)
[2023-08-29 20:05] LABS: ALK PHOS 106 U/L (45-117); BILIRUBIN,TOTAL 0.6 mg/dL (0.2-1); HDL CHOLESTEROL 73 mg/dL (40-60); LDL CHOLESTEROL (ONLY SJRH) 141 mg/dL (5-100)
[2023-08-29] MEDS ORDERED: POTASSIUM CHLORIDE ORAL LIQUID 20 MEQ/15 ML ONE (20:26)
[2023-08-29] MEDS: POTASSIUM CHLORIDE ORAL LIQUID 20 MEQ/15 ML PO ONE (20:29)
[2023-08-29 20:30] LABS: CREATININE 0.7 mg/dL (0.55-1.3)
[2023-08-29 20:57] LABS: MAGNESIUM 1.6 mg/dL (1.8-2.4)
[2023-08-29] MEDS ORDERED: MAGNESIUM SULFATE IN WATER 2 GM/50 ML IVPB IVPB ONE (22:03)
[2023-08-29] MEDS: MAGNESIUM SULF 50% (8.12 MEQ/2 ML-1 GM VIAL) IVPB ONE (22:10)
[2023-08-29] MEDS ORDERED: ONDANSETRON 4 MG/2 ML VIAL IVPUSH PRN (22:52)
[2023-08-29 22:56] LABS: PHOSPHOROUS 2.2 mg/dL (2.5-4.9)
[2023-08-29 23:39] LABS: ARTERIAL BLD GAS O2 SATURATION 97.9 % (95-98); ARTERIAL BLOOD GAS BASE EXCESS -6.9 mmol/L (-2-2); ARTERIAL BLOOD GAS PO2 107.7 mmHg (80-100)
[2023-08-29 23:44] LABS: ALLENS TEST POSITIVE
[2023-08-30] MEDS: MECLIZINE HCL 25 MG TABLET (FP) PO SCH (00:07)
[2023-08-30 03:25] VITALS: BMI 29.0
[2023-08-30] MEDS: MAGNESIUM SULF 50% (8.12 MEQ/2 ML-1 GM VIAL) IVPB ONE (05:54)
[2023-08-30] MEDS: INSULIN ASPART SLIDING SCALE (NOVOLOG) 1 VIAL SQ SCH (06:05)
[2023-08-30] MEDS ORDERED: INSULIN ASPART SLIDING SCALE (NOVOLOG) 1 VIAL SQ SCH (07:00)
[2023-08-30 07:23] LABS: BASO % 0.6 % (0-2.0); HEMATOCRIT 34.4 % (32.4-45.2); HEMOGLOBIN 11.5 GM/dL (10.7-15.3); LYMPH % 19.6 % (8-40); MCH 30.4 pg (25.7-33.7); MCHC 33.5 g/dl (32.0-36.0); MEAN CELL VOLUME 90.6 fl (80-96); MEAN PLT VOLUME 7.6 fl (7.5-11.1); NEUT % 74.8 % (42.8-82.8); PLATELET COUNT 280 10^3/uL (134-434); RDW 13.2 % (11.6-15.6); WHITE BLOOD COUNT 10.6 K/mm3 (4.0-10.0)
[2023-08-30 07:40] LABS: ALBUMIN 3.3 g/dl (3.4-5.0); BLOOD UREA NITROGEN 11.7 mg/dL (7-18); CALCIUM 8.8 mg/dL (8.5-10.1); MAGNESIUM 2.5 mg/dL (1.8-2.4)
[2023-08-30 07:43] LABS: CREATININE 0.6 mg/dL (0.55-1.3); PHOSPHOROUS 3.5 mg/dL (2.5-4.9)
[2023-08-30 07:45] LABS: BILIRUBIN,TOTAL 1.1 mg/dL (0.2-1); TOT PROT 5.9 g/dl (6.4-8.2)
[2023-08-30] MEDS ORDERED: POTASSIUM CHLORIDE TABS 20 MEQ TABLET.ER (FP) PO ONE (08:00)
[2023-08-30] MEDS: CEFTRIAXONE 1 GM in DEXTROSE 5%-WATER - 50 ML IVPB ONE (08:16)
[2023-08-30] MEDS: POTASSIUM CHLORIDE ORAL LIQUID 20 MEQ/15 ML PO ONE (08:17)
[2023-08-30] MEDS: ENOXAPARIN NA (PORCINE) 40 MG/0.4 ML DISP.SYRIN SQ SCH (10:02)
[2023-08-30] MEDS: ROSUVASTATIN CA 20 MG TABLET PO SCH (21:18)
[2023-08-30] MEDS ORDERED: ROSUVASTATIN CA 10 MG TABLET PO SCH (22:00)
[2023-08-30] MEDS ORDERED: ATORVASTATIN CA 10 MG TABLET (FP) PO SCH (22:00)
[2023-08-30] MEDS ORDERED: ATORVASTATIN CA 80 MG TABLET (FP) PO SCH (22:00)
[2023-08-31 01:20] VITALS: RESP 18
[2023-08-31 08:40] LABS: BASO % 0.8 % (0-2.0); EOS % 1.9 % (0-4.5); HEMOGLOBIN 12.6 GM/dL (10.7-15.3); LYMPH % 26.6 % (8-40); MCHC 34.2 g/dl (32.0-36.0); MEAN CELL VOLUME 90.7 fl (80-96); MEAN PLT VOLUME 8.1 fl (7.5-11.1); MONO % 3.7 % (3.8-10.2); PLATELET COUNT 296 10^3/uL (134-434); RBC 4.08 M/mm3 (3.60-5.2); RDW 13.2 % (11.6-15.6); WHITE BLOOD COUNT 7.8 K/mm3 (4.0-10.0)
[2023-08-31 10:51] VITALS: BP 128/67; PULSE 64; TEMP 97.9
== END 2023-08-31 12:58 | disposition home or self-care (01) ==
LOC: JER 18:20 → JERBED 20:57 → UNDOADMOB 20:57 → JERBED 22:47 → J4S 22:47 → INTOOBSV 23:10 → OBSVTOIN 23:10 → J4S 08-30 09:45 → JERBED 08-30 09:45
PROVIDERS: ADMIT Internal Medicine; ATTEND Internal Medicine
PROC: 3E03329 Introduction of Other Anti-infective into Peripheral Vein, Percutaneous Approach (ICD-10-PCS; principal; 2023-08-30)
PROC: 3E023GC Introduction of Other Therapeutic Substance into Muscle, Percutaneous Approach (ICD-10-PCS; 2023-08-30)
PROC: 3E033GC Introduction of Other Therapeutic Substance into Peripheral Vein, Percutaneous Approach (ICD-10-PCS; 2023-08-30)
PROC: 3E0337Z Introduction of Electrolytic and Water Balance Substance into Peripheral Vein, Percutaneous Approach (ICD-10-PCS; 2023-08-30)
DX: U07.1 COVID-19 (principal); R42 Dizziness and giddiness; R09.89 Other specified symptoms and signs involving the circulatory and respiratory systems; E11.9 Type 2 diabetes mellitus without complications; K21.9 Gastro-esophageal reflux disease without esophagitis; I10 Essential (primary) hypertension; E78.5 Hyperlipidemia, unspecified; K29.70 Gastritis, unspecified, without bleeding; M54.9 Dorsalgia, unspecified
CPT/HCPCS: 0241U-QW; 36415; 36600; 70450-TC; 70551-TC; 71045-TC-FY; 80053; 80061; 82550; 82803; 82962; 83036; 83605; 83735; 84100; 84439; 84443; 84484; 85025; 85610; 85730; 86850; 86900; 86901; 87086; 93005; 93010; 93306-TC; 93880-TC; 96361; 96365; 96372; 96375; 96376; 97116-GP; 97162-GP; 99285-25; G0378; Q0162